=== PATIENT | female | born 1945 | race African-American/Black ===

== ENCOUNTER → 2016-08-09 | Outpatient (CLI) | payer MEDICARE ==
[2016-08-09 12:30] LABS: HEMOGLOBIN 10.1 g/dL (12.0-15.5); HGB HCT DIFFERENCE -1.7; MEAN CORPUSCULAR HEMOGLOBIN 26.1 pg (27.0-33.4); MEAN CORPUSCULAR HGB CONC 31.7 g/dL (32.0-36.0); MEAN CORPUSCULAR VOLUME 82 fl (80-97); RED BLOOD COUNT 3.88 10^6/uL (3.72-5.28); RED CELL DISTRIBUTION WIDTH 14.8 % (11.5-14.0)
[2016-08-09 12:50] LABS: ANION GAP 14 (5-19); BLOOD UREA NITROGEN 48 mg/dL (7-20); CALCIUM 9.1 mg/dL (8.4-10.2); CARBON DIOXIDE 26 mmol/L (22-30); CHLORIDE 103 mmol/L (98-107); CREATININE RESULT 1.78 mg/dL (0.52-1.25); GLUCOSE 92 mg/dL (75-110); IRON 23 ug/dL (37-170); POTASSIUM 3.5 mmol/L (3.6-5.0); SODIUM 142.8 mmol/L (137-145)
[2016-08-12 15:38] LABS: A/G RATIO 1.1 (0.7-1.7); ALBUMIN 2 3.4 g/dL (2.9-4.4); ALPHA-1-GLOBULIN 2 0.2 g/dL (0.0-0.4); GAMMA GLOBULIN 1.3 g/dL (0.4-1.8); PROTEIN TOTAL SERUM 6.4 g/dL (6.0-8.5)
== END ==
LOC: OD 10:51
PROVIDERS: ATTEND Internal Medicine Nephrology
DX: D64.9 Anemia, unspecified (principal); N18.3 Chronic kidney disease, stage 3 (moderate); I12.9 Hypertensive chronic kidney disease with stage 1 through stage 4 chronic kidney disease, or unspecified chronic kidney disease
CPT/HCPCS: 36415; 80048; 82728; 83540; 84165; 85027

== ENCOUNTER → 2016-10-07 | Outpatient (CLI) | payer MEDICARE ==
[2016-10-07 12:23] LABS: HEMATOCRIT 32.2 % (36.0-47.0); HEMOGLOBIN 10.8 g/dL (12.0-15.5); HGB HCT DIFFERENCE 0.2; MEAN CORPUSCULAR HGB CONC 33.5 g/dL (32.0-36.0); MEAN CORPUSCULAR VOLUME 81 fl (80-97); RED CELL DISTRIBUTION WIDTH 15.3 % (11.5-14.0); WHITE BLOOD COUNT 6.4 10^3/uL (4.0-10.5)
[2016-10-07 12:40] LABS: ANION GAP 9 (5-19); BLOOD UREA NITROGEN 32 mg/dL (7-20); CALCIUM 9.9 mg/dL (8.4-10.2); CARBON DIOXIDE 31 mmol/L (22-30); CHLORIDE 105 mmol/L (98-107); CREATININE RESULT 1.33 mg/dL (0.52-1.25); GLUCOSE 91 mg/dL (75-110); POTASSIUM 3.7 mmol/L (3.6-5.0); SODIUM 144.6 mmol/L (137-145)
[2016-10-08 16:39] LABS: A/G RATIO 1.2 (0.7-1.7); ALBUMIN 2 3.6 g/dL (2.9-4.4); ALPHA-1-GLOBULIN 2 0.2 g/dL (0.0-0.4); GAMMA GLOBULIN 1.4 g/dL (0.4-1.8); PROTEIN TOTAL SERUM 6.6 g/dL (6.0-8.5)
== END ==
LOC: OD 11:02
PROVIDERS: ATTEND Internal Medicine Nephrology
DX: I12.9 Hypertensive chronic kidney disease with stage 1 through stage 4 chronic kidney disease, or unspecified chronic kidney disease (principal); N18.3 Chronic kidney disease, stage 3 (moderate); D64.9 Anemia, unspecified
CPT/HCPCS: 36415; 80048; 82728; 83540; 83550; 84165; 85027

== ENCOUNTER → 2017-02-04 | Outpatient (CLI) | payer MEDICARE ==
[2017-02-04 11:55] LABS: APPEARANCE,URINE CLEAR; BILIRUBIN,URINE NEGATIVE (NEGATIVE); GLUCOSE, URINE NEGATIVE (NEGATIVE); KETONES,URINE NEGATIVE (NEGATIVE); LEUKOCYTE ESTERASE,URINE TRACE (NEGATIVE); NITRITE,URINE NEGATIVE (NEGATIVE); PROTEIN,URINE NEGATIVE (NEGATIVE); URINE SPECIFIC GRAVITY 1.012; UROBILINOGEN,URINE NEGATIVE mg/dL (<2.0)
[2017-02-04 12:00] LABS: HEMATOCRIT 32.9 % (36.0-47.0); HEMOGLOBIN 11.1 g/dL (12.0-15.5); HGB HCT DIFFERENCE 0.4; MEAN CORPUSCULAR HEMOGLOBIN 27.5 pg (27.0-33.4); MEAN CORPUSCULAR HGB CONC 33.7 g/dL (32.0-36.0); MEAN CORPUSCULAR VOLUME 82 fl (80-97); RED BLOOD COUNT 4.04 10^6/uL (3.72-5.28); RED CELL DISTRIBUTION WIDTH 14.7 % (11.5-14.0); WHITE BLOOD COUNT 4.9 10^3/uL (4.0-10.5)
[2017-02-04 12:16] LABS: ANION GAP 9 (5-19); BLOOD UREA NITROGEN 52 mg/dL (7-20); CALCIUM 9.5 mg/dL (8.4-10.2); CARBON DIOXIDE 26 mmol/L (22-30); CHLORIDE 105 mmol/L (98-107); CREATININE RESULT 1.82 mg/dL (0.52-1.25); GLUCOSE 96 mg/dL (75-110); SODIUM 139.9 mmol/L (137-145)
== END ==
LOC: OD 11:09
PROVIDERS: ATTEND Internal Medicine Nephrology
DX: I12.9 Hypertensive chronic kidney disease with stage 1 through stage 4 chronic kidney disease, or unspecified chronic kidney disease (principal); N18.3 Chronic kidney disease, stage 3 (moderate); D64.9 Anemia, unspecified; E87.5 Hyperkalemia
CPT/HCPCS: 36415; 80048; 81001; 82728; 83540; 83550; 85027

== ENCOUNTER 2017-03-12 01:32 | Emergency (ER) | payer MEDICARE ==
[2017-03-12 02:13] LABS: ABSOLUTE EOSINOPHILS # (AUTO) 0.1 10^3/uL (0.0-0.6); ABSOLUTE LYMPHOCYTES (AUTO) 2.6 10^3/uL (0.5-4.7); ABSOLUTE MONOCYTES (AUTO) 0.7 10^3/uL (0.1-1.4); ABSOLUTE NEUT (AUTO) 3.6 10^3/uL (1.7-8.2); BASOPHILS % (AUTO) 0.7 % (0-2); EOSINOPHILS % (AUTO) 1.7 % (0-6); HEMATOCRIT 35.6 % (36.0-47.0); HEMOGLOBIN 11.9 g/dL (12.0-15.5); HGB HCT DIFFERENCE 0.1; LYMPHOCYTES % (AUTO) 36.8 % (13-45); MEAN CORPUSCULAR HEMOGLOBIN 27.7 pg (27.0-33.4); MEAN CORPUSCULAR HGB CONC 33.4 g/dL (32.0-36.0); MEAN CORPUSCULAR VOLUME 83 fl (80-97); MONOCYTES % (AUTO) 9.6 % (3-13); RED CELL DISTRIBUTION WIDTH 14.8 % (11.5-14.0); SEGMENTED NEUTROPHILS % (AUTO) 51.2 % (42-78)
[2017-03-12 02:28] LABS: ALANINE AMINOTRANSFERASE 23 U/L (9-52); ALBUMIN 3.9 g/dL (3.5-5.0); ALKALINE PHOSPHATASE 66 U/L (38-126); ANION GAP 10 (5-19); ASPARTATE AMINO TRANSFERASE 31 U/L (14-36); BILIRUBIN,DIRECT 0.4 mg/dL (0.0-0.4); BILIRUBIN,TOTAL 0.5 mg/dL (0.2-1.3); BLOOD UREA NITROGEN 50 mg/dL (7-20); CALCIUM 9.7 mg/dL (8.4-10.2); CARBON DIOXIDE 28 mmol/L (22-30); CHLORIDE 107 mmol/L (98-107); CREATININE RESULT 1.88 mg/dL (0.52-1.25); GLUCOSE 135 mg/dL (75-110); POTASSIUM 3.7 mmol/L (3.6-5.0); SODIUM 145.1 mmol/L (137-145); TOTAL PROTEIN 7.2 g/dL (6.3-8.2)
[2017-03-12 02:47] LABS: APPEARANCE,URINE SLIGHTLY-CLOUDY; BILIRUBIN,URINE NEGATIVE (NEGATIVE); GLUCOSE, URINE NEGATIVE (NEGATIVE); KETONES,URINE NEGATIVE (NEGATIVE); LEUKOCYTE ESTERASE,URINE LARGE (NEGATIVE); NITRITE,URINE NEGATIVE (NEGATIVE); PROTEIN,URINE NEGATIVE (NEGATIVE); URINE SPECIFIC GRAVITY 1.009; UROBILINOGEN,URINE NEGATIVE mg/dL (<2.0)
--- NOTE | 2017-03-12 03:16 | ER Document Report ---
ED General - General TRAVEL OUTSIDE OF THE [place] IN LAST 30 DAYS: No <BIANKA JUNIOR - Last Filed: 03/12/17 19:20> <MAILE OCHOA - Last Filed: 03/17/17 11:36> - General Chief Complaint: Weakness Stated Complaint: WEAKNESS Time Seen by Provider: 03/12/17 01:57 Notes: This 71-year-old female presents emergency department complaining of feeling woozy and urinary frequency. Patient states that she was trying to sleep when she had sudden onset of feeling weak and dizzy. Patient states that she is better but feels intermittent nausea. Her daughter at the bedside states that she has been urinary more frequently. Patient states that before she went to bed she went to the bathroom at 6 times in an hour. Denies any pyuria, hematuria, flank pain, fever or chills. Past medical history significant for hypertension and chronic kidney disease stage III Past surgical history significant for cardiac cath in the and a stress test in 2005 that was normal. Primary care provider is Valery Ventura, tapper bit is Dr. Escalona, allocations clerk is Dr. Cohen (BIANKA JUNIOR) - Related Data Allergies/Adverse Reactions: No Known Allergies Allergy (Verified 08/19/14 22:15) Past Medical History - Social History Smoking Status: Never Smoker Family History: Reviewed & Not Pertinent Patient has suicidal ideation: No Patient has homicidal ideation: No - Past Medical History Cardiac Medical History: Reports: Hx Hypercholesterolemia, Hx Hypertension Denies: Hx Coronary Artery Disease, Hx Heart Attack Pulmonary Medical History: Denies: Hx Asthma, Hx Bronchitis, Hx COPD, Hx Pneumonia Neurological Medical History: Denies: Hx Cerebrovascular Accident, Hx Seizures Renal/ Medical History: Denies: Hx Peritoneal Dialysis GI Medical History: Reports: Hx Gastroesophageal Reflux Disease Musculoskeltal Medical History: Reports Hx Arthritis - Knees Past Surgical History: Reports: Hx Abdominal Surgery, Hx Bowel Surgery, Hx Hysterectomy, Hx Neurologic Surgery - brain tumor 2010, Hx Orthopedic Surgery - hand surgery, Hx Tonsillectomy - Immunizations Hx Diphtheria, Pertussis, Tetanus Vaccination: No Hx Pneumococcal Vaccination: 07/28/12 <BIANKA JUNIOR - Last Filed: 03/12/17 19:20> Review of Systems - Review of Systems Constitutional: No symptoms reported Cardiovascular: No symptoms reported Respiratory: No symptoms reported Genitourinary: Frequency. denies: Dysuria, Flank pain, Hematuria, Urgency, Retention Neurological/Psychological: See HPI <BIANKA JUNIOR - Last Filed: 03/12/17 19:20> Physical Exam <BIANKA JUNIOR - Last Filed: 03/12/17 19:20> <MAILE OCHOA - Last Filed: 03/17/17 11:36> - Vital signs Vitals: Temp Pulse Resp BP Pulse Ox 97.6 F 58 L 14 103/60 100 03/12/17 01:36 03/12/17 01:36 03/12/17 01:36 03/12/17 01:36 03/12/17 01:36 - Notes Notes: PHYSICAL EXAM GENERAL: Alert, interacts well. HEAD: Normocephalic, atraumatic. EYES: Pupils equal, round, and reactive to light. Extraocular movements intact. ENT: Oral mucosa moist, tongue midline. NECK: Full range of motion. Supple. Trachea midline. LUNGS: Clear to auscultation bilaterally, no wheezes, rales, or rhonchi. No respiratory distress. HEART: Regular rate and rhythm. No murmurs, gallops, or rubs. ABDOMEN: Soft, nondistended, nontender. No guarding, rebound, or rigidity.. Bowel sounds present in all 4 quadrants. EXTREMITIES: Moves all 4 extremities spontaneously. No edema, radial and dorsalis pedis pulses 2/4 bilaterally. No cyanosis. NEUROLOGICAL: Alert and oriented x4. Normal speech. PSYCH: Normal affect, normal mood. SKIN: Warm, dry, normal turgor. No rashes or lesions noted. (BIANKA JUNIOR) Course - Laboratory Result Diagrams: 03/12/17 02:02 03/12/17 02:02 - EKG Interpretation by [place] EKG shows normal: Sinus rhythm Rate: Normal Rhythm: NSR Heart block present: 1st Degree When compared to previous EKG there are: No significant change <BIANKA JUNIOR - Last Filed: 03/12/17 19:20> - Laboratory Result Diagrams: 03/12/17 02:02 03/12/17 02:02 <MAILE OCHOA - Last Filed: 03/17/17 11:36> - Re-evaluation Re-evalutation: 03/12/17 02:00 Patient is a 71-year-old female who is hemodynamically stable, no acute distress afebrile. Orthostatics are normal. Patient with vague complaints will do cardiac workup. 03/12/2017 03:30 CBC and CMP stable without any evidence of anemia, leukocytosis. No evidence of electrolyte abnormalities. Kidney function is stable per comparison to previous lab evaluations. Patient is making urine. Urinalysis does show evidence of urinary tract infection. Troponin at 0.021. Patient will be held for 4 hours for repeat to be drawn at 6 AM. Patient is hemodynamically stable, no acute distress afebrile. Denies any chest pain, shortness of breath, difficulty breathing, cough. Patient and family are agreeable with plan. 03/12/17 06:28 Repeat troponin was 0.017. Patient HDs and eager to go home. Family at the bedside, patient stable for discharge. Patient is very well in appearance, vitals within normal limits. Low clinical suspicion for ACS given clinical history, exam, EKG without ST elevations or depressions, and negative initial troponin. HEART score less than or equal to 3. PE also seems unlikely given clinical history, absence of tachycardia or dyspnea. Well's score of 0. At this time will discharge with return precautions and follow-up recommendations. Verbal discharge instructions given a the bedside and opportunity for questions given. Medication warnings reviewed. Patient is in agreement with this plan and has verbalized understanding of return precautions and the need for primary care follow-up in the next 24-72 hours. (BIANKA JUNIOR) - Vital Signs Vital signs: Temp Pulse Resp BP Pulse Ox 97.6 F 58 L 15 138/78 H 99 03/12/17 01:36 03/12/17 01:36 03/12/17 07:54 03/12/17 07:54 03/12/17 07:54 - Laboratory Laboratory results interpreted by me: 03/12/17 03/12/17 03/12/17 02:02 02:02 02:26 Hgb 11.9 L Hct 35.6 L RDW 14.8 H Sodium 145.1 H BUN 50 H Creatinine 1.88 H Est GFR ( Amer) 32 L Est GFR (Non-Af Amer) 26 L Glucose 135 H Ur Leukocyte Esterase LARGE H Discharge <BIANKA JUNIOR - Last Filed: 03/12/17 19:20> <MAILE OCHOA - Last Filed: 03/17/17 11:36> - Discharge Clinical Impression: UTI (urinary tract infection) Qualifiers: Urinary tract infection type: acute cystitis Condition: Good Disposition: HOME, SELF-CARE Instructions: Nitrofurantoin ([facility]), Urinary Tract Infection ([facility]) Prescriptions: Nitrofurantoin/Nitrofuran Mac [Macrobid 100 mg Capsule] 1 tab PO BID #20 capsule Referrals: VALERY GUAJARDO NP [Primary Care Provider] - Follow up as needed
[2017-03-12 08:08] VITALS: BP 138/78
--- NOTE | 2017-03-12 08:26 | EKG REPORT ---
SEVERITY:- ABNORMAL ECG - SINUS RHYTHM FIRST DEGREE AV BLOCK LVH WITH SECONDARY REPOLARIZATION ABNORMALITY PROBABLE INFERIOR INFARCT, OLD : Confirmed by: Sim Whitney MD 12-Mar-2017 08:25:20
== END 2017-03-12 08:08 | disposition home or self-care (01) ==
LOC: ER 01:32
DX: N39.0 Urinary tract infection, site not specified (principal); I12.9 Hypertensive chronic kidney disease with stage 1 through stage 4 chronic kidney disease, or unspecified chronic kidney disease; N18.3 Chronic kidney disease, stage 3 (moderate)
CPT/HCPCS: 36415; 80053; 81001; 84484; 85025; 93005; 93010; 99285

== ENCOUNTER → 2017-04-08 | Outpatient (CLI) | payer MEDICARE ==
--- NOTE | 2017-04-08 16:30 | RADIOLOGY REPORT (SQ) ---
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 TECHNIQUE: Supine radiographic image of the abdomen acquired. LIMITATIONS: None. FINDINGS: BOWEL GAS PATTERN: Normal bowel gas pattern. No dilated loops. Moderate stool in the asce nding and transverse colon. CALCIFICATIONS: No suspicious calcifications. Calcified pelvic and retroperitoneal phleboliths. SOFT TISSUES: No gross mass or suggestion of organomegaly. HARDWARE: Surgical clips in the mid epigastrium with bowel anastomotic sharonda BONES: Osteopenic. Degenerative disc changes at L4-5 and L5-S1 OTHER: No other significant finding. IMPRESSION: Moderate stool in the colon. Otherwise nonobstructive bowel gas pattern. TECHNICAL DOCUMENTATION: JOB ID: [id number] [employer]- All Rights Reserved
== END ==
LOC: RAD 11:51
PROVIDERS: ATTEND Physician Assistant Surgical
DX: K59.01 Slow transit constipation (principal); K57.30 Diverticulosis of large intestine without perforation or abscess without bleeding
CPT/HCPCS: 74000

== ENCOUNTER → 2017-06-27 | Outpatient (CLI) | payer MEDICARE ==
[2017-06-27 12:30] LABS: HEMATOCRIT 34.3 % (36.0-47.0); HEMOGLOBIN 11.6 g/dL (12.0-15.5); HGB HCT DIFFERENCE 0.5; MEAN CORPUSCULAR HEMOGLOBIN 27.2 pg (27.0-33.4); MEAN CORPUSCULAR HGB CONC 33.8 g/dL (32.0-36.0); MEAN CORPUSCULAR VOLUME 80 fl (80-97); RED BLOOD COUNT 4.27 10^6/uL (3.72-5.28); RED CELL DISTRIBUTION WIDTH 15.1 % (11.5-14.0); WHITE BLOOD COUNT 7.1 10^3/uL (4.0-10.5)
[2017-06-27 12:49] LABS: ANION GAP 14 (5-19); BLOOD UREA NITROGEN 26 mg/dL (7-20); CALCIUM 9.5 mg/dL (8.4-10.2); CARBON DIOXIDE 27 mmol/L (22-30); CHLORIDE 105 mmol/L (98-107); CREATININE RESULT 1.67 mg/dL (0.52-1.25); GLUCOSE 133 mg/dL (75-110); POTASSIUM 3.6 mmol/L (3.6-5.0); SODIUM 145.9 mmol/L (137-145)
== END ==
LOC: OD 11:33
PROVIDERS: ATTEND Internal Medicine Nephrology
DX: N18.3 Chronic kidney disease, stage 3 (moderate) (principal); D64.9 Anemia, unspecified; I12.9 Hypertensive chronic kidney disease with stage 1 through stage 4 chronic kidney disease, or unspecified chronic kidney disease; E87.5 Hyperkalemia
CPT/HCPCS: 36415; 80048; 85027

== ENCOUNTER → 2017-08-05 | Outpatient (CLI) | payer MEDICARE ==
[2017-08-05 12:09] LABS: HEMATOCRIT 33.3 % (36.0-47.0); MEAN CORPUSCULAR HEMOGLOBIN 26.4 pg (27.0-33.4); MEAN CORPUSCULAR VOLUME 80 fl (80-97); PLATELET COUNT 251 10^3/uL (150-450); RED BLOOD COUNT 4.15 10^6/uL (3.72-5.28); RED CELL DISTRIBUTION WIDTH 14.9 % (11.5-14.0); WHITE BLOOD COUNT 5.2 10^3/uL (4.0-10.5)
[2017-08-05 12:37] LABS: ANION GAP 9 (5-19); BLOOD UREA NITROGEN 32 mg/dL (7-20); CALCIUM 9.8 mg/dL (8.4-10.2); CARBON DIOXIDE 29 mmol/L (22-30); CHLORIDE 105 mmol/L (98-107); GLUCOSE 106 mg/dL (75-110); POTASSIUM 3.9 mmol/L (3.6-5.0); SODIUM 143.2 mmol/L (137-145)
== END ==
LOC: OD 10:30
PROVIDERS: ATTEND Internal Medicine Nephrology
DX: I12.9 Hypertensive chronic kidney disease with stage 1 through stage 4 chronic kidney disease, or unspecified chronic kidney disease (principal); N18.3 Chronic kidney disease, stage 3 (moderate); E87.5 Hyperkalemia; D64.9 Anemia, unspecified
CPT/HCPCS: 36415; 80048; 85027

== ENCOUNTER 2017-08-08 16:44 | Emergency (ER) | payer MEDICARE ==
[2017-08-08] MEDS ORDERED: HYDRALAZINE HCL INJ/PF 20 MG/1 ML SDV IV ONE (17:46)
--- NOTE | 2017-08-08 17:49 | ER Document Report ---
ED Medical Screen (RME) - General Chief Complaint: High Blood Pressure Stated Complaint: BLOOD PRESSURE ISSES Time Seen by Provider: 08/08/17 17:40 Notes: 71-year-old female past medical history stage IV kidney disease hypertension sent here by her appraiser auditor Dr. Escalona for elevated blood pressure of systolic 220s. She denies having any symptoms. She denies missing any doses of her numerous blood pressure medications. She denies any changes in the dosing of her blood pressure medications. She is not currently on dialysis. In [facility] systolic blood pressure 226. TRAVEL OUTSIDE OF THE [place] IN LAST 30 DAYS: No - Related Data Allergies/Adverse Reactions: No Known Allergies Allergy (Verified 08/08/17 16:44) Home Medications: Current Home Medications Amlodipine Besylate 10 mg PO DAILY 08/08/17 [History] Aspirin [Aspirin EC] 81 mg PO DAILY 08/08/17 [History] Atorvastatin Calcium 20 mg PO DAILY 08/08/17 [History] Past Medical History - Social History Chew tobacco use (# tins/day): No Frequency of alcohol use: None Drug Abuse: None - Past Medical History Cardiac Medical History: Reports: Hx Hypercholesterolemia, Hx Hypertension Denies: Hx Coronary Artery Disease, Hx Heart Attack Pulmonary Medical History: Denies: Hx Asthma, Hx Bronchitis, Hx COPD, Hx Pneumonia Neurological Medical History: Denies: Hx Cerebrovascular Accident, Hx Seizures Renal/ Medical History: Denies: Hx Peritoneal Dialysis GI Medical History: Reports: Hx Gastroesophageal Reflux Disease Musculoskeltal Medical History: Reports Hx Arthritis - Knees Past Surgical History: Reports: Hx Abdominal Surgery, Hx Bowel Surgery, Hx Hysterectomy, Hx Neurologic Surgery - brain tumor 2010, Hx Orthopedic Surgery - hand surgery, Hx Tonsillectomy - Immunizations Hx Diphtheria, Pertussis, Tetanus Vaccination: No Physical Exam - Vital signs Vitals: Temp Pulse Resp BP Pulse Ox 97.6 F 50 L 16 205/80 H 100 08/08/17 17:13 08/08/17 17:13 08/08/17 17:13 08/08/17 17:13 08/08/17 17:13 Course - Vital Signs Vital signs: Temp Pulse Resp BP Pulse Ox 97.6 F 50 L 16 205/80 H 100 08/08/17 17:13 08/08/17 17:13 08/08/17 17:13 08/08/17 17:13 08/08/17 17:13
[2017-08-08 18:28] LABS: ABSOLUTE BASOPHILS # (AUTO) 0.1 10^3/uL (0.0-0.2); ABSOLUTE EOSINOPHILS # (AUTO) 0.2 10^3/uL (0.0-0.6); ABSOLUTE LYMPHOCYTES (AUTO) 2.4 10^3/uL (0.5-4.7); ABSOLUTE MONOCYTES (AUTO) 0.6 10^3/uL (0.1-1.4); ABSOLUTE NEUT (AUTO) 3.1 10^3/uL (1.7-8.2); BASOPHILS % (AUTO) 0.9 % (0-2); HEMATOCRIT 34.7 % (36.0-47.0); HEMOGLOBIN 11.4 g/dL (12.0-15.5); MEAN CORPUSCULAR HEMOGLOBIN 26.4 pg (27.0-33.4); MEAN CORPUSCULAR HGB CONC 32.9 g/dL (32.0-36.0); MEAN CORPUSCULAR VOLUME 80 fl (80-97); MONOCYTES % (AUTO) 9.9 % (3-13); PLATELET COUNT 261 10^3/uL (150-450); RED BLOOD COUNT 4.32 10^6/uL (3.72-5.28); RED CELL DISTRIBUTION WIDTH 14.4 % (11.5-14.0); SEGMENTED NEUTROPHILS % (AUTO) 48.2 % (42-78); TOTAL CELLS COUNTED % (AUTO) 100 %; WHITE BLOOD COUNT 6.4 10^3/uL (4.0-10.5)
[2017-08-08 18:49] LABS: ANION GAP 9 (5-19); BLOOD UREA NITROGEN 33 mg/dL (7-20); CALCIUM 10.1 mg/dL (8.4-10.2); CARBON DIOXIDE 30 mmol/L (22-30); CHLORIDE 104 mmol/L (98-107); GLUCOSE 101 mg/dL (75-110); MAGNESIUM 2.3 mg/dL (1.6-2.3); PHOSPHORUS 4.5 mg/dL (2.5-4.5); POTASSIUM 3.4 mmol/L (3.6-5.0); SODIUM 142.6 mmol/L (137-145)
[2017-08-08] MEDS ORDERED: LABETALOL HCL INJ 20 MG/4 ML DISP.SYRIN IV ONE (21:08)
[2017-08-08] MEDS ORDERED: NITROGLYCERIN 2% OINTMENT 1 GM PACKET TP ONE (21:38)
--- NOTE | 2017-08-08 21:47 | ER Document Report ---
ED General - General Chief Complaint: High Blood Pressure Stated Complaint: BLOOD PRESSURE ISSES Time Seen by Provider: 08/08/17 17:40 Mode of Arrival: Ambulatory Information source: Patient Notes: 71-year-old female history of hypertension who is on 5 separate blood pressure medications presents with complaints of high blood pressure. She denies any other complaints otherwise. She denies chest pain shortness breath with the breathing. TRAVEL OUTSIDE OF THE [place] IN LAST 30 DAYS: No - HPI Onset: Just prior to arrival Onset/Duration: Sudden Quality of pain: No pain Severity: Mild Pain Level: Denies Associated symptoms: Other Exacerbated by: Denies Relieved by: Denies Similar symptoms previously: Yes Recently seen / treated by doctor: Yes - sent by Dr norwood - Related Data Allergies/Adverse Reactions: No Known Allergies Allergy (Verified 08/08/17 16:44) Home Medications: Current Home Medications Amlodipine Besylate 10 mg PO DAILY 08/08/17 [History] Aspirin [Aspirin EC] 81 mg PO DAILY 08/08/17 [History] Atorvastatin Calcium 20 mg PO DAILY 08/08/17 [History] Calcium/Magnesium/Zinc [Zzlfcsf-Ambwnwaat-Wpdl Tab] 1 each PO DAILY 08/08/17 [ History] Cholecalciferol (Vitamin D3) [Cholecalciferol] 200 units PO DAILY 08/08/17 [ History] Clonidine HCl 0.2 mg PO TID 08/08/17 [History] Ferrous Sulfate [Ferosul] 325 mg PO DAILY 08/08/17 [History] Furosemide 20 mg PO DAILY 08/08/17 [History] Glimepiride 1 mg PO DAILY 08/08/17 [History] Isosorbide Mononitrate [Isosorbide Mononitrate ER] 30 mg PO DAILY 08/08/17 [ History] Lactobacillus Rhamnosus GG [Culturelle] 1 each PO DAILY 08/08/17 [History] Lactulose 10 gm PO BID 08/08/17 [History] Latanoprost 2.5 ml OP DAILY 08/08/17 [History] Levothyroxine Sodium 50 mcg PO DAILY 08/08/17 [History] Losartan/Hydrochlorothiazide [Hyzaar 100-12.5 Tablet] 1 each PO DAILY 08/08/17 [ History] Metoprolol Succinate 25 mg PO DAILY 08/08/17 [History] Past Medical History - Social History Smoking Status: Never Smoker Cigarette use (# per day): No Chew tobacco use (# tins/day): No Smoking Education Provided: No Frequency of alcohol use: None Drug Abuse: None Family History: Reviewed & Not Pertinent Patient has suicidal ideation: No Patient has homicidal ideation: No - Past Medical History Cardiac Medical History: Reports: Hx Hypercholesterolemia, Hx Hypertension Denies: Hx Coronary Artery Disease, Hx Heart Attack Pulmonary Medical History: Denies: Hx Asthma, Hx Bronchitis, Hx COPD, Hx Pneumonia Neurological Medical History: Denies: Hx Cerebrovascular Accident, Hx Seizures Renal/ Medical History: Denies: Hx Peritoneal Dialysis GI Medical History: Reports: Hx Gastroesophageal Reflux Disease Musculoskeltal Medical History: Reports Hx Arthritis - Knees Past Surgical History: Reports: Hx Abdominal Surgery, Hx Bowel Surgery, Hx Hysterectomy, Hx Neurologic Surgery - brain tumor 2010, Hx Orthopedic Surgery - hand surgery, Hx Tonsillectomy - Immunizations Hx Diphtheria, Pertussis, Tetanus Vaccination: No Hx Pneumococcal Vaccination: 07/28/12 Review of Systems - Review of Systems Notes: REVIEW OF SYSTEMS: CONSTITUTIONAL : Denies fever, chills, or sweats. Denies recent illness. EENT: Denies eye, ear, throat, or mouth pain or symptoms. Denies nasal or sinus congestion or discharge. Denies throat, tongue, or mouth swelling or difficulty swallowing. CARDIOVASCULAR: Denies chest pain. Denies palpitations or racing or irregular heart beat. Denies ankle edema. RESPIRATORY: Denies cough, cold, or chest congestion. Denies shortness of breath, difficulty breathing, or wheezing. GASTROINTESTINAL: Denies abdominal pain or distention. Denies nausea, vomiting , or diarrhea. Denies blood in vomitus, stools, or per rectum. Denies black, tarry stools. Denies constipation. GENITOURINARY: Denies difficulty urinating, painful urination, burning, frequency, blood in urine, or discharge. FEMALE GENITOURINARY: Denies vaginal bleeding, heavy or abnormal periods, irregular periods. Denies vaginal discharge or odor. MUSCULOSKELETAL: Denies back or neck pain or stiffness. Denies joint pain or swelling. SKIN: Denies rash, lesions or sores. HEMATOLOGIC : Denies easy bruising or bleeding. LYMPHATIC: Denies swollen, enlarged glands. NEUROLOGICAL: Denies confusion or altered mental status. Denies passing out or loss of consciousness. Denies dizziness or lightheadedness. Denies headache. Denies weakness or paralysis or loss of use of either side. Denies problems with gait or speech. Denies sensory loss, numbness, or tingling. Denies seizures. PSYCHIATRIC: Denies anxiety or stress. Denies depression, suicidal ideation, or homicidal ideation. ALL OTHER SYSTEMS REVIEWED AND NEGATIVE. PHYSICAL EXAMINATION: GENERAL: Well-appearing, well-nourished and in no acute distress. hypertensive HEAD: Atraumatic, normocephalic. EYES: Pupils equal round and reactive to light, extraocular movements intact, conjunctiva are normal. ENT: Nares patent, oropharynx clear without exudates. Moist mucous membranes. NECK: Normal range of motion, supple without lymphadenopathy LUNGS: Breath sounds clear to auscultation bilaterally and equal. No wheezes rales or rhonchi. HEART: Regular rate and rhythm without murmurs ABDOMEN: Soft, nontender, nondistended abdomen. No guarding, no rebound. No masses appreciated. Female : deferred Musculoskeletal: Normal range of motion, no pitting or edema. No cyanosis. NEUROLOGICAL: Cranial nerves grossly intact. Normal speech, normal gait. Normal sensory, motor exams PSYCH: Normal mood, normal affect. SKIN: Warm, Dry, normal turgor, no rashes or lesions noted. Dictation was performed using [employer] voice recognition software Physical Exam - Vital signs Vitals: Temp Pulse Resp BP Pulse Ox 97.6 F 50 L 16 205/80 H 100 08/08/17 17:13 08/08/17 17:13 08/08/17 17:13 08/08/17 17:13 08/08/17 17:13 Course - Re-evaluation Re-evalutation: 08/08/17 22:19 Pt noted to be stage IV kidney disease. She is asymptomatic, given clonidine by dr norwood before sending her in, given hydralazine here in [facility], pt still hypertensive, given metoprolol iv pt t obe admitted to the hospitalist service for hypertensive urgency - Vital Signs Vital signs: Temp Pulse Resp BP Pulse Ox 97.6 F 50 L 16 226/87 H 100 08/08/17 17:13 08/08/17 17:13 08/08/17 17:13 08/08/17 17:42 08/08/17 17:13 - Laboratory Result Diagrams: 08/08/17 18:10 08/08/17 18:10 Laboratory results interpreted by me: 08/08/17 08/08/17 18:10 18:10 Hgb 11.4 L Hct 34.7 L MCH 26.4 L RDW 14.4 H Potassium 3.4 L BUN 33 H Creatinine 1.55 H Est GFR ( Amer) 40 L Est GFR (Non-Af Amer) 33 L - Diagnostic Test Radiology reviewed: Image reviewed, Reports reviewed - EKG Interpretation by Me EKG shows normal: Sinus rhythm, [place], Intervals, QRS Complexes Critical Care Note - Critical Care Note Total time excluding time spent on procedures (mins): 35 Comments: 35 minutes of critical care time spent in direct contact evaluating and reevaluating the patient, treating symptoms, reviewing labs and studies and speaking with family and consultants excluding any procedures Discharge - Discharge Clinical Impression: Hypertensive urgency, malignant Condition: Stable Disposition: ADMITTED INPATIENT Admitting Provider: Hospitalist Unit Admitted: Telemetry
[2017-08-08] MEDS ORDERED: POTASSIUM CHLORIDE 10 MEQ TABLET.SA PO ONE (21:54)
[2017-08-08] MEDS ORDERED: LORAZEPAM 0.5 MG TABLET PO ONE (21:54)
--- NOTE | 2017-08-08 22:18 | RADIOLOGY REPORT (SQ) ---
EXAM DESCRIPTION: CHEST SINGLE VIEW COMPLETED DATE/TIME: 08/08/2017 10:11 pm REASON FOR STUDY: hypertensive emergency COMPARISON: 10/31/2015 EXAM PARAMETERS: NUMBER OF VIEWS: One view. TECHNIQUE: Single frontal radiographic view of the chest acquired. RADIATION DOSE: NA LIMITATIONS: None. FINDINGS: LUNGS AND PLEURA: No opacities, masses or pneumothorax. No pleural effusion. MEDIASTINUM AND HILAR STRUCTURES: No masses. Contour normal. HEART AND VASCULAR STRUCTURES: Heart normal in size. Normal vasculature. BONES: No acute findings. HARDWARE: None in the chest. OTHER: No other significant finding. IMPRESSION: NO ACUTE RADIOGRAPHIC FINDING IN THE CHEST. TECHNICAL DOCUMENTATION: JOB ID: [id number] [employer]- All Rights Reserved
[2017-08-08] MEDS ORDERED: CLONIDINE HCL 0.2 MG TABLET PO ONE (23:22)
--- NOTE | 2017-08-09 02:47 | PDOC CONSULTATION ---
Consultation Consult Date: 08/08/17 Attending physician:: KOLBY FLORES Consult reason:: Hypertension History of Present Illness Admission Date/PCP: 08/08/17 22:13 ANUSHKA GUAJARDO NP History of Present Illness: FARIHA ROSS is a 71 year old female with past medical history of chronic kidney disease, hypertension, anemia, Beatties mellitus, hypothyroidism hyperlipidemia who presents to the emergency department from her cosmetic dentist office for hypertensive urgency. Patient reports that she did not take her clonidine this afternoon and was given her clonidine in her doctor's office. She was still hypertensive with a systolic in the 200s and received labetalol and hydralazine in the emergency department. Patient was subsequently given 0.5 mg of p.o. Ativan with improvement of her symptomatology. Patient reports at this time that she does not wish to be admitted. She denies any chest pain, lower extremity edema, shortness of breath, nausea, vomiting, fever, chills. At this time I discussed this case with the emergency department physician who is in agreement that patient may be discharged home to follow-up with her primary care physician and her cosmetic dentist. Past Medical History Cardiac Medical History: Reports: Hyperlipidema, Hypertension Denies: Coronary Artery Disease, Myocardial Infarction Pulmonary Medical History: Denies: Asthma, Bronchitis, Chronic Obstructive Pulmonary Disease (COPD), Pneumonia Neurological Medical History: Denies: Seizures Endocrine Medical History: Reports: Diabetes Mellitus Type 2 GI Medical History: Reports: Gastroesophageal Reflux Disease Musculoskeltal Medical History: Reports: Arthritis - Knees Hematology: Denies: Anemia Past Surgical History Past Surgical History: Reports: Hysterectomy, Orthopedic Surgery - hand surgery , Tonsillectomy Social History Smoking Status: Never Smoker Frequency of Alcohol Use: None Hx Recreational Drug Use: No Drugs: None Hx Prescription Drug Abuse: No - Advance Directive Resuscitation Status: Full Code Family History Family History: Reviewed & Not Pertinent Parental Family History Reviewed: No Children Family History Reviewed: No Sibling(s) Family History Reviewed.: No Medication/Allergy Home Medications: Amlodipine Besylate 10 mg PO DAILY 08/08/17 Aspirin [Aspirin EC] 81 mg PO DAILY 08/08/17 Atorvastatin Calcium 20 mg PO DAILY 08/08/17 Calcium/Magnesium/Zinc [Jkohdpp-Homzntmpa-Efar Tab] 1 each PO DAILY 08/08/17 Cholecalciferol (Vitamin D3) [Cholecalciferol] 200 units PO DAILY 08/08/17 Clonidine HCl 0.2 mg PO TID 08/08/17 Ferrous Sulfate [Ferosul] 325 mg PO DAILY 08/08/17 Furosemide 20 mg PO DAILY 08/08/17 Glimepiride 1 mg PO DAILY 08/08/17 Isosorbide Mononitrate [Isosorbide Mononitrate ER] 30 mg PO DAILY 08/08/17 Lactobacillus Rhamnosus GG [Culturelle] 1 each PO DAILY 08/08/17 Lactulose 10 gm PO BID 08/08/17 Latanoprost 2.5 ml OP DAILY 08/08/17 Levothyroxine Sodium 50 mcg PO DAILY 08/08/17 Losartan/Hydrochlorothiazide [Hyzaar 100-12.5 Tablet] 1 each PO DAILY 08/08/17 Metoprolol Succinate 25 mg PO DAILY 08/08/17 Allergies/Adverse Reactions: No Known Allergies Allergy (Verified 08/08/17 16:44) Review of Systems Constitutional: ABSENT: chills, fever(s), headache(s), weight gain, weight loss Eyes: ABSENT: visual disturbances Ears: ABSENT: hearing changes Cardiovascular: ABSENT: chest pain, dyspnea on exertion, edema, orthropnea, palpitations Respiratory: ABSENT: cough, hemoptysis Gastrointestinal: ABSENT: abdominal pain, constipation, diarrhea, hematemesis, hematochezia, nausea, vomiting Genitourinary: ABSENT: dysuria, hematuria Musculoskeletal: ABSENT: joint swelling Integumentary: ABSENT: rash, wounds Neurological: ABSENT: abnormal gait, abnormal speech, confusion, dizziness, focal weakness, syncope Psychiatric: ABSENT: anxiety, depression, homidical ideation, suicidal ideation Endocrine: ABSENT: cold intolerance, heat intolerance, polydipsia, polyuria Hematologic/Lymphatic: ABSENT: easy bleeding, easy bruising Physical Exam Vital Signs: Temp Pulse Resp BP Pulse Ox 97.6 F 50 L 16 226/87 H 100 08/08/17 17:13 08/08/17 17:13 08/08/17 17:13 08/08/17 17:42 08/08/17 17:13 General appearance: PRESENT: no acute distress, obese, well-developed, well- nourished Head exam: PRESENT: atraumatic, normocephalic Eye exam: PRESENT: conjunctiva pink, EOMI, PERRLA. ABSENT: scleral icterus Ear exam: PRESENT: normal external ear exam Mouth exam: PRESENT: moist, tongue midline Neck exam: ABSENT: JVD, tracheal deviation Respiratory exam: PRESENT: clear to auscultation raffi, unlabored. ABSENT: rales , rhonchi, wheezes Cardiovascular exam: PRESENT: RRR, +S1, +S2, systolic murmur. ABSENT: diastolic murmur, rubs Pulses: PRESENT: normal dorsalis pedis pul Vascular exam: PRESENT: normal capillary refill GI/Abdominal exam: PRESENT: normal bowel sounds, soft. ABSENT: distended, firm , guarding, mass, organolmegaly, rebound, rigid, tenderness Rectal exam: PRESENT: deferred Extremities exam: ABSENT: calf tenderness, clubbing, pedal edema Neurological exam: PRESENT: alert, awake, oriented to person, oriented to place , oriented to time, oriented to situation, CN II-XII grossly intact. ABSENT: motor sensory deficit Psychiatric exam: PRESENT: appropriate affect, normal mood. ABSENT: homicidal ideation, suicidal ideation Skin exam: PRESENT: dry, intact, warm. ABSENT: cyanosis, rash Results Impressions: Chest X-Ray 08/08/17 00:00 IMPRESSION: NO ACUTE RADIOGRAPHIC FINDING IN THE CHEST. Assessment & Plan - Diagnosis (1) Hypertensive urgency, malignant Is this a current diagnosis for this admission?: Yes Plan: Patient had hypertensive urgency without any endorgan damage. Patient has a history of CKD stage IV. At this time, patient does not appear volume overloaded and her blood pressure did respond appropriately to the reinitiation of her normal medication. She is encouraged to be compliant with her medications and follow-up with her primary care physician and her cosmetic dentist. She is to return to the emergency department for any chest pain, headache, shortness of breath, lower extremity swelling or any other concerning symptoms such as numbness tingling or difficulty with speech. Patient is in agreement with this plan. - Time Time Spent: 30 to 50 Minutes Medications reviewed and adjusted accordingly: Yes Anticipated discharge: Home
[2017-08-09 04:08] VITALS: BP 168/81
--- NOTE | 2017-08-09 09:38 | EKG REPORT ---
SEVERITY:- ABNORMAL ECG - SINUS RHYTHM FIRST DEGREE AV BLOCK LVH WITH SECONDARY REPOLARIZATION ABNORMALITY INFERIOR INFARCT, OLD : Confirmed by: Sim Whitney MD 09-Aug-2017 09:37:10
== END 2017-08-09 03:55 | disposition admitted as inpatient to this hospital (09) ==
LOC: ER 16:44 → UNDOADMIN 22:13 → EH 22:13 → UNDODISIN 08-09 03:55
DX: I16.0 Hypertensive urgency (principal); Z79.899 Other long term (current) drug therapy
CPT/HCPCS: 93005; 99285; 96374; 96375; 36415; 83735; 84100; 85025; 80048; 71045; 93010; A9270 ×4; J0360; J3490

== ENCOUNTER → 2017-09-11 | Outpatient (CLI) | payer MEDICARE ==
--- NOTE | 2017-09-11 11:55 | WOMENS IMAGING REPORT ---
EXAM DESCRIPTION: 3D SCREENING MAMMO BILAT COMPLETED DATE/TIME: 09/11/2017 11:14 am REASON FOR STUDY: ROUTINE SCREENING; Z12.31 Z12.31 ENCNTR SCREEN MAMMOGRAM FOR MALIGNANT NEOPLASM O F CHUY COMPARISON: 2015 TECHNIQUE: Standard craniocaudal and mediolateral oblique views of each breast recorded using digita l acquisition and breast tomosynthesis. LIMITATIONS: None. FINDINGS: No masses, calcifications or architectural distortion. No areas of suspicion. Read with the assistance of CAD. .[facility] - R2 Cenova Version 1.3 .[facility] Imaging - R2 Cenova Version 1.3 .[facility] Imaging - R2 Cenova Version 2.4 .[facility] - R2 Cenova Version 2.4 .[facility] - R2 Bottom Worker Version 9.2 IMPRESSION: NORMAL MAMMOGRAM. BIRADS 1. BREAST DENSITY: a. The breasts are almost entirely fatty. BIRAD: 1 NEGATIVE RECOMMENDATION: ROUTINE SCREENING COMMENT: The patient has been notified of the results by letter per SA requirements. Additional no tification policies are in place for contacting patient with suspicious or incomplete findings. Quality ID #[id number]: The [employer] recommends an annual screening mammogram for women aged 40 years or over. This facility utilizes a reminder system to ensure that all patients receive reminder letters, and/or direct phone calls for appointments. This includes reminders for routine scr eening mammograms, diagnostic mammograms, or other Breast Imaging Interventions when appropriate. Th is patient will be placed in the appropriate reminder system. The [employer] (ACR) has developed recommendations for screening MRI of the breast s in certain patient populations, to be used in conjunction with mammography. Breast MRI surveillanc e may be appropriate for women with more than 20% lifetime risk of developing breast cancer as deter mined by genetic testing, significant family history of the disease, or history of mantle radiation f or Hodgkins Disease. ACR Practice Guidelines 2008. DBT Technology DBT is a type of tomographic mammography. With conventional mammography, overlapping breast tissue ma y make lesions difficult to detect, even with good compression. DBT uses an x-ray tube that rotates a round the breast, taking images at different angles. These images are then combined to create thin sl ices of the breast that the radiologist can view as a 3D reconstruction. The Stam[employer] unit can perform full-field digital mammograms (2D imaging); or DBT (3D imaging); or both, in a combination mode that quickly performs both the mammogram and the tomosynthesis scan while the breast is still compressed. PQRS 6045F: Fluoroscopic imaging is not utilized for breast tomosynthesis. TECHNICAL DOCUMENTATION: FINDING NUMBER: (1) ASSESSMENT: (1) JOB ID: [id number] [employer]- All Rights Reserved
== END ==
LOC: WI 09:20
PROVIDERS: ATTEND Nurse Practitioner
DX: Z12.31 Encounter for screening mammogram for malignant neoplasm of breast (principal)
CPT/HCPCS: 77063; 77067

== ENCOUNTER → 2018-02-27 | Outpatient (CLI) | payer MEDICARE ==
[2018-02-27 13:06] LABS: HEMATOCRIT 31.6 % (36.0-47.0); HEMOGLOBIN 10.6 g/dL (12.0-15.5); MEAN CORPUSCULAR HEMOGLOBIN 26.9 pg (27.0-33.4); MEAN CORPUSCULAR HGB CONC 33.4 g/dL (32.0-36.0); MEAN CORPUSCULAR VOLUME 81 fl (80-97); PLATELET COUNT 278 10^3/uL (150-450); RED BLOOD COUNT 3.93 10^6/uL (3.72-5.28); RED CELL DISTRIBUTION WIDTH 14.5 % (11.5-14.0); WHITE BLOOD COUNT 6.5 10^3/uL (4.0-10.5)
[2018-02-27 13:10] LABS: APPEARANCE,URINE CLEAR; BILIRUBIN,URINE NEGATIVE (NEGATIVE); COLOR,URINE YELLOW; GLUCOSE, URINE NEGATIVE (NEGATIVE); KETONES,URINE NEGATIVE (NEGATIVE); LEUKOCYTE ESTERASE,URINE MODERATE (NEGATIVE); NITRITE,URINE NEGATIVE (NEGATIVE); PROTEIN,URINE NEGATIVE (NEGATIVE); URINE SPECIFIC GRAVITY 1.011; UROBILINOGEN,URINE NEGATIVE mg/dL (<2.0)
[2018-02-27 13:40] LABS: ANION GAP 10 (5-19); BLOOD UREA NITROGEN 27 mg/dL (7-20); CALCIUM 9.1 mg/dL (8.4-10.2); CARBON DIOXIDE 28 mmol/L (22-30); CHLORIDE 101 mmol/L (98-107); GLUCOSE 103 mg/dL (75-110); POTASSIUM 3.5 mmol/L (3.6-5.0); SODIUM 138.9 mmol/L (137-145)
== END ==
LOC: OD 11:50
PROVIDERS: ATTEND Internal Medicine Nephrology
DX: I12.9 Hypertensive chronic kidney disease with stage 1 through stage 4 chronic kidney disease, or unspecified chronic kidney disease (principal); N18.3 Chronic kidney disease, stage 3 (moderate); E87.5 Hyperkalemia; D64.9 Anemia, unspecified
CPT/HCPCS: 36415; 80048; 81001; 85027

== ENCOUNTER → 2018-03-06 | Outpatient (CLI) | payer MEDICARE | LOC: OD 12:09 | PROVIDERS: ATTEND Internal Medicine Nephrology | DX: E03.9 Hypothyroidism, unspecified (principal); D64.9 Anemia, unspecified | CPT/HCPCS: 36415; 84443 ==

== ENCOUNTER 2018-03-22 19:07 | Emergency (ER) | payer MEDICARE ==
[2018-03-22] MEDS ORDERED: NORMAL SALINE 1000 ML 1,000 ML IV ONE (19:34)
[2018-03-22] MEDS ORDERED: METOCLOPRAMIDE HCL INJ/PF 10 MG/2 ML SDV IV ONE (19:35)
--- NOTE | 2018-03-22 19:37 | ER Document Report ---
ED Medical Screen (RME) - General Chief Complaint: Constipation Stated Complaint: NO BOWEL MOVEMENT Time Seen by Provider: 03/22/18 19:29 Mode of Arrival: Wheelchair Information source: Patient TRAVEL OUTSIDE OF THE [place] IN LAST 30 DAYS: No - HPI Patient complains to provider of: Constipation Onset: Other - 72-year-old female with a history of chronic constipation treated in the past with lactulose who presents for evaluation of terrible constipation in the setting of having skipped 2 days of her lactulose while her family was out of town. While attempting to start back taking her normal medicines she has had now intense abdominal pain with associated vomiting. She notes that she tried 2 enemas at home today also because of her hemorrhoids is not having rectal bleeding. - Related Data Allergies/Adverse Reactions: No Known Allergies Allergy (Verified 03/22/18 19:25) Past Medical History - Social History Chew tobacco use (# tins/day): No Frequency of alcohol use: None Drug Abuse: None - Past Medical History Cardiac Medical History: Reports: Hx Hypercholesterolemia, Hx Hypertension Denies: Hx Coronary Artery Disease, Hx Heart Attack Pulmonary Medical History: Denies: Hx Asthma, Hx Bronchitis, Hx COPD, Hx Pneumonia Neurological Medical History: Denies: Hx Cerebrovascular Accident, Hx Seizures Endocrine Medical History: Reports: Hx Diabetes Mellitus Type 2 Renal/ Medical History: Denies: Hx Peritoneal Dialysis GI Medical History: Reports: Hx Gastroesophageal Reflux Disease Musculoskeltal Medical History: Reports Hx Arthritis - Knees Past Surgical History: Reports: Hx Abdominal Surgery - partial bowels removed, Hx Bowel Surgery, Hx Hysterectomy, Hx Neurologic Surgery - brain tumor removed, Hx Orthopedic Surgery - hand surgery, Hx Tonsillectomy - Immunizations Hx Diphtheria, Pertussis, Tetanus Vaccination: No Physical Exam - Vital signs Vitals: Temp Pulse Resp BP Pulse Ox 98.6 F 81 16 185/97 H 100 03/22/18 19:14 03/22/18 19:14 03/22/18 19:14 03/22/18 19:14 03/22/18 19:14 Course - Re-evaluation Re-evalutation: 03/22/18 19:36 72-year-old female with a constipated history, has been utilizing lactulose in the past to help with her constipation, though she skipped 2 days accidentally. She is trying to use 2 enemas to help with her symptoms. [place] abdominal tenderness worse than left lower quadrant she is also actively vomiting on evaluation. She has had multiple abdominal surgeries in the past, have some concern for an obstructive process as such we will plan for the patient undergo abdominal x-ray , will plan for the patient undergo labs including lactate as well and potential CT imaging. We will administer antiemetic. Will administer saline. Patient has deferred analgesia at this time will defer disposition upcoming physician. - Vital Signs Vital signs: Temp Pulse Resp BP Pulse Ox 98.6 F 81 16 185/97 H 100 03/22/18 19:14 03/22/18 19:14 03/22/18 19:14 03/22/18 19:14 03/22/18 19:14 Doctor's Discharge - Discharge Referrals: Dara KITCHEN MD [Primary Care Provider] - Follow up as needed
[2018-03-22] MEDS ORDERED: LACTULOSE SYRUP 20 GM/30 ML UDCUP PO ONE (20:01)
[2018-03-22 20:47] LABS: ABSOLUTE BASOPHILS # (AUTO) 0.1 10^3/uL (0.0-0.2); ABSOLUTE EOSINOPHILS # (AUTO) 0.1 10^3/uL (0.0-0.6); ABSOLUTE LYMPHOCYTES (AUTO) 1.9 10^3/uL (0.5-4.7); ABSOLUTE MONOCYTES (AUTO) 0.6 10^3/uL (0.1-1.4); ABSOLUTE NEUT (AUTO) 6.6 10^3/uL (1.7-8.2); BASOPHILS % (AUTO) 0.6 % (0-2); EOSINOPHILS % (AUTO) 1.1 % (0-6); HEMATOCRIT 36.7 % (36.0-47.0); HEMOGLOBIN 12.2 g/dL (12.0-15.5); LYMPHOCYTES % (AUTO) 20.2 % (13-45); MEAN CORPUSCULAR HEMOGLOBIN 26.9 pg (27.0-33.4); MEAN CORPUSCULAR HGB CONC 33.3 g/dL (32.0-36.0); MEAN CORPUSCULAR VOLUME 81 fl (80-97); MONOCYTES % (AUTO) 6.8 % (3-13); PLATELET COUNT 270 10^3/uL (150-450); RED BLOOD COUNT 4.55 10^6/uL (3.72-5.28); RED CELL DISTRIBUTION WIDTH 14.7 % (11.5-14.0); SEGMENTED NEUTROPHILS % (AUTO) 71.3 % (42-78); TOTAL CELLS COUNTED % (AUTO) 100 %; WHITE BLOOD COUNT 9.2 10^3/uL (4.0-10.5)
[2018-03-22 20:50] LABS: APPEARANCE,URINE CLEAR; BILIRUBIN,URINE NEGATIVE (NEGATIVE); COLOR,URINE STRAW; GLUCOSE, URINE NEGATIVE (NEGATIVE); KETONES,URINE NEGATIVE (NEGATIVE); LEUKOCYTE ESTERASE,URINE TRACE (NEGATIVE); NITRITE,URINE NEGATIVE (NEGATIVE); PROTEIN,URINE NEGATIVE (NEGATIVE); URINE SPECIFIC GRAVITY 1.012; UROBILINOGEN,URINE NEGATIVE mg/dL (<2.0)
--- NOTE | 2018-03-22 20:58 | ER Document Report ---
ED General - General Chief Complaint: Constipation Stated Complaint: NO BOWEL MOVEMENT Time Seen by Provider: 03/22/18 19:29 Mode of Arrival: Wheelchair Notes: Patient is a 72-year old female with a past medical history of prior bowel obstructions requiring a partial bowel resection in the past, chronic constipation, hypertension, who presents with 2 days without having a bowel movement, 24 hours of nausea, vomiting and generalized abdominal pain. She describes abdominal pain as a cramping, aching, diffuse pain. Nothing improves or worsens the pain. She has had several episodes of brown vomitus today and has had difficulty tolerating oral intake. She states that she was traveling, did not take her lactulose for the past 48 hours which she normally takes to prevent severe constipation. She has not seen her general doctor regarding today's concerns. She denies any fever or constitutional symptoms. No dysuria. TRAVEL OUTSIDE OF THE [place] IN LAST 30 DAYS: No - Related Data Allergies/Adverse Reactions: No Known Allergies Allergy (Verified 03/22/18 19:25) Past Medical History - General Information source: Patient - Social History Smoking Status: Never Smoker Chew tobacco use (# tins/day): No Frequency of alcohol use: None Drug Abuse: None Lives with: Family Family History: Reviewed & Not Pertinent Patient has suicidal ideation: No Patient has homicidal ideation: No - Past Medical History Cardiac Medical History: Reports: Hx Hypercholesterolemia, Hx Hypertension Denies: Hx Coronary Artery Disease, Hx Heart Attack Pulmonary Medical History: Denies: Hx Asthma, Hx Bronchitis, Hx COPD, Hx Pneumonia Neurological Medical History: Denies: Hx Cerebrovascular Accident, Hx Seizures Endocrine Medical History: Reports: Hx Diabetes Mellitus Type 2 Renal/ Medical History: Denies: Hx Peritoneal Dialysis GI Medical History: Reports: Hx Gastroesophageal Reflux Disease Musculoskeletal Medical History: Reports Hx Arthritis - Knees Past Surgical History: Reports: Hx Abdominal Surgery - partial bowels removed, Hx Bowel Surgery, Hx Hysterectomy, Hx Neurologic Surgery - brain tumor removed, Hx Orthopedic Surgery - hand surgery, Hx Tonsillectomy - Immunizations Hx Diphtheria, Pertussis, Tetanus Vaccination: No Hx Pneumococcal Vaccination: 07/28/12 Review of Systems - Review of Systems Notes: Constitutional: Negative for fever. HENT: Negative for sore throat. Eyes: Negative for visual changes. Cardiovascular: Negative for chest pain. Respiratory: Negative for shortness of breath. Gastrointestinal: Positive for abdominal pain and vomiting Genitourinary: Negative for dysuria. Musculoskeletal: Negative for back pain. Skin: Negative for rash. Neurological: Negative for headaches, weakness or numbness. 10 point ROS negative except as marked above and in HPI. Physical Exam - Vital signs Vitals: Temp Pulse Resp BP Pulse Ox 98.6 F 81 16 185/97 H 100 03/22/18 19:14 03/22/18 19:14 03/22/18 19:14 03/22/18 19:14 03/22/18 19:14 Interpretation: Hypertensive Notes: PHYSICAL EXAMINATION: GENERAL: Well-appearing, well-nourished and in no acute distress. HEAD: Atraumatic, normocephalic. EYES: Pupils equal round and reactive to light, extraocular movements intact, sclera anicteric, conjunctiva are normal. ENT: nares patent, oropharynx clear without exudates. Mildly dry mucous membranes. NECK: Normal range of motion, supple without lymphadenopathy LUNGS: Breath sounds clear to auscultation bilaterally and equal. No wheezes rales or rhonchi. HEART: Regular rate and rhythm without murmurs ABDOMEN: Soft, nontender, normoactive bowel sounds. No guarding, no rebound. No masses appreciated. EXTREMITIES: Normal range of motion, no pitting or edema. No cyanosis. NEUROLOGICAL: No focal neurological deficits. Moves all extremities spontaneously and on command. PSYCH: Normal mood, normal affect. SKIN: Warm, Dry, normal turgor, no rashes or lesions noted. Course - Re-evaluation Re-evalutation: 03/22/18 20:57 Patient presents with generalized abdominal pain, decreased bowel movement frequency and vomiting brown for the past 24 hours. Patient had 2 bowel movements while here in the emergency department but reports that this did not relieve her generalized abdominal discomfort. Abdominal exam she does have active bowel sounds. No focal areas of tenderness, rebound or guarding. She does have history of prior bowel obstructions that required surgical management with partial bowel resection in the past. Primary concern is for possible small bowel obstruction. Will proceed with labs, CT abdomen pelvis and reassess 03/23/18 01:10 CT scan of the abdomen pelvis does not demonstrate any evidence of a bowel obstruction or any other acute pathology. The patient has tolerated oral intake without any difficulty. Repeat abdominal exam remains benign. At this time will discharge with return precautions and follow-up recommendations. Verbal discharge instructions given a the bedside and opportunity for questions given. Medication warnings reviewed. Patient is in agreement with this plan and has verbalized understanding of return precautions and the need for primary care follow-up in the next 24-72 hours. - Vital Signs Vital signs: Temp Pulse Resp BP Pulse Ox 98.6 F 81 16 167/86 H 99 03/22/18 19:14 03/22/18 19:14 03/22/18 19:14 03/22/18 21:36 03/22/18 21:36 - Laboratory Result Diagrams: 03/22/18 20:28 03/22/18 20:28 Laboratory results interpreted by me: 03/22/18 03/22/18 03/22/18 20:28 20:28 20:28 MCH 26.9 L RDW 14.7 H Sodium 145.8 H Potassium 3.2 L BUN 32 H Creatinine 1.73 H Est GFR ( Amer) 35 L Est GFR (Non-Af Amer) 29 L Glucose 128 H Calcium 10.4 H AST 37 H Urine Blood SMALL H Ur Leukocyte Esterase TRACE H - Diagnostic Test Radiology reviewed: Reports reviewed Discharge - Discharge Clinical Impression: Generalized abdominal pain Nausea and vomiting Qualifiers: Vomiting type: unspecified Vomiting Intractability: non-intractable Qualified Code(s): R11.2 - Nausea with vomiting, unspecified Constipation Qualifiers: Constipation type: unspecified constipation type Qualified Code(s): K59.00 - Constipation, unspecified Condition: Good Disposition: HOME, SELF-CARE Additional Instructions: You have been seen in the Emergency Department (ED) for abdominal pain. Your evaluation did not identify a clear cause of your symptoms but was generally reassuring. Please follow up with your doctor as soon as possible regarding today's emergent visit and the symptoms that are bothering you. Return to the ED if your abdominal pain worsens or fails to improve, you develop bloody vomiting, bloody diarrhea, you are unable to tolerate fluids due to vomiting, fever greater than 101, or other symptoms that concern you. Referrals: Dara KITCHEN MD [ACTIVE STAFF] - Follow up as needed
[2018-03-22 21:06] LABS: ALANINE AMINOTRANSFERASE 28 U/L (9-52); ALBUMIN 4.4 g/dL (3.5-5.0); ALKALINE PHOSPHATASE 60 U/L (38-126); ANION GAP 15 (5-19); ASPARTATE AMINO TRANSFERASE 37 U/L (14-36); BILIRUBIN,DIRECT 0.3 mg/dL (0.0-0.4); BILIRUBIN,TOTAL 0.3 mg/dL (0.2-1.3); BLOOD UREA NITROGEN 32 mg/dL (7-20); CALCIUM 10.4 mg/dL (8.4-10.2); CARBON DIOXIDE 27 mmol/L (22-30); CHLORIDE 104 mmol/L (98-107); GLUCOSE 128 mg/dL (75-110); LIPASE 147.6 U/L (23-300); POTASSIUM 3.2 mmol/L (3.6-5.0); SODIUM 145.8 mmol/L (137-145); TOTAL PROTEIN 8.1 g/dL (6.3-8.2)
--- NOTE | 2018-03-23 00:10 | RADIOLOGY REPORT (SQ) ---
EXAM DESCRIPTION: CT ABDOMEN PELVIS WITH IV CONTRAST COMPLETED DATE/TME: 03/22/2018 00:00 CLINICAL HISTORY: 72 years, Female, eval sbo COMPARISON: 03/21/2016. TECHNIQUE: 406 Images stored on PACS. All CT scanners at this facility use dose modulation, iterative reconstruction, and/or weight based dosing when appropriate to reduce radiation dose to as low as reasonably achievable (ALARA). [facility]: Dose Right [facility]: CareDose [facility]: Dose Right [facility]: Teradose 4D [facility]: Smart Technologies LIMITATIONS: None. FINDINGS: Small hiatal hernia. Spleen and adrenal glands are unremarkable. Gallbladder appears unremarkable. Numerous renal cysts bilaterally the largest in the left kidney measuring 9 cm. The pancreas appears unremarkable. There is no evidence to suggest obstructive uropathy or hydronephrosis. Numerous vascular calcifications are present along the gonadal veins. Calcification in aorta and its branches. No evidence of aortic aneurysm or dissection. There is a ventral hernia containing nonobstructed loops of bowel. This appears similar to the prior exam. No free fluid in the pelvis. Diverticulosis without evidence of diverticulitis. IMPRESSION: Noted acute process Stable appearance of ventral hernia containing nonobstructed bowel Numerous bilateral renal cysts Diverticulosis without diverticulitis TECHNICAL DOCUMENTATION: Quality ID # 436: Final reports with documentation of one or more dose reduction techniques (e.g., Automated exposure control, adjustment of the mA and/or kV according to patient size, use of iterative reconstruction technique) 2010 [employer]- All Rights Reserved
[2018-03-23 01:31] VITALS: BP 162/93
== END 2018-03-23 01:31 | disposition home or self-care (01) ==
LOC: ER 19:07
DX: K59.00 Constipation, unspecified (principal); T47.3X6A Underdosing of saline and osmotic laxatives, initial encounter; Z91.128 Patient's intentional underdosing of medication regimen for other reason; Z91.14 Patient's other noncompliance with medication regimen; R10.84 Generalized abdominal pain; R11.2 Nausea with vomiting, unspecified; I10 Essential (primary) hypertension; E11.9 Type 2 diabetes mellitus without complications; Z90.49 Acquired absence of other specified parts of digestive tract
CPT/HCPCS: 99284; 96361; 96374; 36415; 83605; 83690; 85025; 80053; 81001; 74177; J2765; J7030

== ENCOUNTER 2018-07-09 07:53 | Day surgery (SDC) | payer MEDICARE ==
[~2018-07-09 07:53] MED LIST: KETOROLAC TROMETHAMINE 0.45% 4 DROP/0.4 ML DROPERETTE OD PRN; TETRACAINE HCL 0.5% OPH SOLN 0.6 ML DROPERETTE OD PRN
[2018-07-09] MEDS ORDERED: LIDOCAINE 1%/PHENYLEPHRINE 1.5% 1 ML VIAL ONE (07:56)
[2018-07-09] MEDS ORDERED: EPINEPHRINE INJ/PF 1 MG/1 ML AMPULE ONE (07:56)
[2018-07-09] MEDS ORDERED: CHONDR SU A NA/HYALUR INTRAOC KIT (SURGICARE) ONE (07:57)
[2018-07-09] MEDS ORDERED: MIDAZOLAM 2 MG/2 ML INJ ONE (08:03)
[2018-07-09] MEDS: TROPICAMIDE 1% OPH SOLN 3 ML OD PRN ×2 (08:35→08:55)
[2018-07-09] MEDS: BESIFLOXACIN HCL 0.6% OPH SUSP 5 ML BOTTLE OD PRN ×4 (08:35→09:41)
[2018-07-09] MEDS: CYCLOPENTOLATE 0.2%/PHENYLEPHRINE 1% OPH SOLN 2 ML OD PRN ×3 (08:35→08:55)
[2018-07-09] MEDS: TETRACAINE HCL 0.5% OPH SOLN 4 ML OD PRN ×4 (08:36→09:21)
--- NOTE | 2018-07-10 07:42 | [facility] OPERATIVE REPORT E ---
[facility] Operative Report NAME: FARIHA ROSS AGE: 72Y DATE OF SURGERY: 07/09/2018 ROOM: PREOPERATIVE DIAGNOSIS: CATARACT, RIGHT EYE. POSTOPERATIVE DIAGNOSIS: CATARACT, RIGHT EYE. OPERATION: Cataract extraction with insertion of an IOL of the right eye. SURGEON: DIPIKA AGGARWAL M.D. ANESTHESIA: Topical. PROCEDURE: After obtaining appropriate consent, the patient's right eye was prepped and draped in sterile fashion as well as the surgeon in a sterile manner and cataract surgery was started. First a paracentesis blade was used to make a side-port incision. Viscoelastic was used to inflate the anterior chamber. Next a 2.4 mm incision was made with a 2.4 mm blade, clear corneal temporally. A continuous capsulorrhexis was made using a cystotome and Utrata forceps. Following this hydrodissection was carried out to make the lens fully loose and mobile and it was rotated 90 degrees. Following this, a [id number] technique was used to phacoemulsify the lens with a CDE of 8.11. The remaining cortex was removed with irrigation/aspiration. Provisc was instilled into the capsular bag to inflate the bag. A SN60WF, 22.0 diopter lens was placed. The remaining viscoelastic material was removed with irrigation/aspiration. Following this, the incision was found to be watertight. Besivance was instilled into the eye and a protective shield was placed over the eye. The patient returned to the postoperative recovery in stable condition. DICTATING PHYSICIAN: DIPIKA AGGARWAL M.D. [id number] PHY#: [id number] ID: [id number] JOB#: [id number] ACCT: [id number] cc:DIPIKA AGGARWAL M.D. >
--- NOTE | 2018-07-10 07:43 | [facility] DISCHARGE SUMMARY E ---
[facility] Discharge Summary NAME: FARIHA ROSS AGE: 72Y ADMITTED: 07/09/2018 DISCHARGED: 07/09/2018 HISTORY: This is a 72-year-old female who underwent cataract extraction of the right eye. DIAGNOSIS: Cataract, right eye. HOSPITAL COURSE: She underwent surgery because she was having difficulty seeing road signs and words on the television. DISCHARGE INSTRUCTIONS: She should be on a regular diet. No bending at the waist. No heavy lifting. She should use Vigamox, Ketorolac, and Durezol at 3 p.m. and 8 p.m., and I will see her for a one day postoperative tomorrow. DICTATING PHYSICIAN: DIPIKA AGGARWAL M.D. [id number] PHY#: [id number] ID: [id number] JOB#: [id number] ACCT: [id number] cc:DIPIKA AGGARWAL M.D. >
== END 2018-07-09 10:39 | disposition home or self-care (01) ==
LOC: SC 07:53
PROVIDERS: ATTEND Internal Medicine
DX: H25.811 Combined forms of age-related cataract, right eye (principal); H40.1122 Primary open-angle glaucoma, left eye, moderate stage; I10 Essential (primary) hypertension; Z79.899 Other long term (current) drug therapy; Z96.1 Presence of intraocular lens; D64.9 Anemia, unspecified; I20.9 Angina pectoris, unspecified
CPT/HCPCS: 66984; V2632; J2250; J3490 ×2; A9270; J0171; J2370; 142

== ENCOUNTER → 2018-08-31 | Outpatient (CLI) | payer MEDICARE, OTHER ==
[2018-08-31 11:09] LABS: HEMATOCRIT 33.3 % (36.0-47.0); HEMOGLOBIN 11.4 g/dL (12.0-15.5); MEAN CORPUSCULAR HEMOGLOBIN 27.9 pg (27.0-33.4); MEAN CORPUSCULAR HGB CONC 34.4 g/dL (32.0-36.0); MEAN CORPUSCULAR VOLUME 81 fl (80-97); PLATELET COUNT 262 10^3/uL (150-450); RED BLOOD COUNT 4.11 10^6/uL (3.72-5.28); RED CELL DISTRIBUTION WIDTH 14.8 % (11.5-14.0); WHITE BLOOD COUNT 6.1 10^3/uL (4.0-10.5)
[2018-08-31 11:18] LABS: APPEARANCE,URINE CLEAR; BILIRUBIN,URINE NEGATIVE (NEGATIVE); COLOR,URINE YELLOW; GLUCOSE, URINE NEGATIVE (NEGATIVE); KETONES,URINE NEGATIVE (NEGATIVE); LEUKOCYTE ESTERASE,URINE LARGE (NEGATIVE); NITRITE,URINE NEGATIVE (NEGATIVE); PROTEIN,URINE NEGATIVE (NEGATIVE); URINE SPECIFIC GRAVITY 1.011; UROBILINOGEN,URINE NEGATIVE mg/dL (<2.0)
[2018-08-31 11:33] LABS: ANION GAP 10 (5-19); BLOOD UREA NITROGEN 29 mg/dL (7-20); CALCIUM 9.6 mg/dL (8.4-10.2); CARBON DIOXIDE 29 mmol/L (22-30); CHLORIDE 104 mmol/L (98-107); GLUCOSE 121 mg/dL (75-110); IRON(TIBC) 56.8 ug/dL (37-170); POTASSIUM 3.7 mmol/L (3.6-5.0); SODIUM 142.6 mmol/L (137-145)
== END ==
LOC: OD 10:25
PROVIDERS: ATTEND Internal Medicine Nephrology
DX: I12.9 Hypertensive chronic kidney disease with stage 1 through stage 4 chronic kidney disease, or unspecified chronic kidney disease (principal); N18.3 Chronic kidney disease, stage 3 (moderate); D64.9 Anemia, unspecified
CPT/HCPCS: 36415; 80048; 81001; 82728; 83540; 83550; 83735; 85027

== ENCOUNTER → 2018-09-18 | Outpatient (CLI) | payer MEDICARE, OTHER ==
[2018-09-18 11:39] LABS: ALANINE AMINOTRANSFERASE 22 U/L (9-52); ALBUMIN 4.3 g/dL (3.5-5.0); ALKALINE PHOSPHATASE 63 U/L (38-126); ANION GAP 9 (5-19); ASPARTATE AMINO TRANSFERASE 34 U/L (14-36); BILIRUBIN,DIRECT 0.1 mg/dL (0.0-0.4); BILIRUBIN,TOTAL 0.6 mg/dL (0.2-1.3); BLOOD UREA NITROGEN 30 mg/dL (7-20); CALCIUM 10.2 mg/dL (8.4-10.2); CARBON DIOXIDE 30 mmol/L (22-30); CHLORIDE 105 mmol/L (98-107); CHOLESTEROL 176.21 mg/dL (0-200); GLUCOSE 108 mg/dL (75-110); POTASSIUM 3.7 mmol/L (3.6-5.0); SODIUM 143.7 mmol/L (137-145); TOTAL PROTEIN 7.3 g/dL (6.3-8.2); TRIGLYCERIDES 78 mg/dL (<150)
[2018-09-18 11:50] LABS: DIRECT LDL 98 mg/dL (<100)
== END ==
LOC: OD 10:14
PROVIDERS: ATTEND Family Medicine
DX: Z13.220 Encounter for screening for lipoid disorders (principal); Z87.898 Personal history of other specified conditions
CPT/HCPCS: 36415; 80053; 80061; 83036; 84443

== ENCOUNTER → 2018-09-30 | Outpatient (CLI) | payer MEDICARE, OTHER ==
--- NOTE | 2018-10-05 15:16 | WOMENS IMAGING REPORT ---
EXAM DESCRIPTION: 3D SCREENING MAMMO BILAT COMPLETED DATE/TIME: 09/30/2018 11:26 am REASON FOR STUDY: Z12.31 ROUTINE 3D BILATERAL SCREENING Z12.31 ENCNTR SCREEN MAMMOGRAM FOR MALIGNAN T NEOPLASM OF CHUY COMPARISON: 09/11/2017 and 12/26/2015. TECHNIQUE: Standard craniocaudal and mediolateral oblique views of each breast recorded using digita l acquisition and breast tomosynthesis. LIMITATIONS: None. FINDINGS: No masses, calcifications or architectural distortion. No areas of suspicion. Read with the assistance of CAD. .[facility] - R2 Cenova Version 1.3 .[facility] - R2 Cenova Version 2.1 .[facility] - R2 Cenova Version 2.4 .[facility] [place] R2 Cenova Version 2.4 .[facility] - R2 Critical Care Physician Version 9.2 IMPRESSION: NORMAL MAMMOGRAM. BIRADS 1. BREAST DENSITY: a. The breasts are almost entirely fatty. BIRAD: 1 NEGATIVE RECOMMENDATION: ROUTINE SCREENING COMMENT: The patient has been notified of the results by letter per MQSA requirements. Additional no tification policies are in place for contacting patient with suspicious or incomplete findings. Quality ID #225: The [employer] recommends an annual screening mammogram for women aged 40 years or over. This facility utilizes a reminder system to ensure that all patients receive reminder letters, and/or direct phone calls for appointments. This includes reminders for routine scr eening mammograms, diagnostic mammograms, or other Breast Imaging Interventions when appropriate. Th is patient will be placed in the appropriate reminder system. The [employer] (ACR) has developed recommendations for screening MRI of the breast s in certain patient populations, to be used in conjunction with mammography. Breast MRI surveillanc e may be appropriate for women with more than 20% lifetime risk of developing breast cancer as deter mined by genetic testing, significant family history of the disease, or history of mantle radiation f or Hodgkins Disease. ACR Practice Guidelines 2008. DBT Technology DBT is a type of tomographic mammography. With conventional mammography, overlapping breast tissue ma y make lesions difficult to detect, even with good compression. DBT uses an x-ray tube that rotates a round the breast, taking images at different angles. These images are then combined to create thin sl ices of the breast that the radiologist can view as a 3D reconstruction. The [employer] unit can perform full-field digital mammograms (2D imaging); or DBT (3D imaging); or both, in a combination mode that quickly performs both the mammogram and the tomosynthesis scan while the breast is still compressed. PQRS 6045F: Fluoroscopic imaging is not utilized for breast tomosynthesis. TECHNICAL DOCUMENTATION: FINDING NUMBER: (1) ASSESSMENT: (1) JOB ID: [id number] [employer]- All Rights Reserved Reading location - IP/workstation name: [email or web address]
== END ==
LOC: WI 10:35
PROVIDERS: ATTEND Family Medicine
DX: Z12.31 Encounter for screening mammogram for malignant neoplasm of breast (principal)
CPT/HCPCS: 77063; 77067

== ENCOUNTER → 2018-10-12 | Outpatient (CLI) | payer MEDICARE, OTHER ==
[2018-10-12 14:09] LABS: ABSOLUTE EOSINOPHILS # (AUTO) 0.2 10^3/uL (0.0-0.6); ABSOLUTE LYMPHOCYTES (AUTO) 1.8 10^3/uL (0.5-4.7); ABSOLUTE MONOCYTES (AUTO) 0.6 10^3/uL (0.1-1.4); BASOPHILS % (AUTO) 0.3 % (0-2); HEMATOCRIT 33.1 % (36.0-47.0); HEMOGLOBIN 11.3 g/dL (12.0-15.5); MEAN CORPUSCULAR HEMOGLOBIN 27.4 pg (27.0-33.4); MEAN CORPUSCULAR HGB CONC 34.1 g/dL (32.0-36.0); MEAN CORPUSCULAR VOLUME 80 fl (80-97); PLATELET COUNT 239 10^3/uL (150-450); RED BLOOD COUNT 4.13 10^6/uL (3.72-5.28); RED CELL DISTRIBUTION WIDTH 14.6 % (11.5-14.0); SEGMENTED NEUTROPHILS % (AUTO) 53.7 % (42-78); TOTAL CELLS COUNTED % (AUTO) 100 %; WHITE BLOOD COUNT 5.5 10^3/uL (4.0-10.5)
[2018-10-12 14:11] LABS: INTERNATIONAL RATION (INR) 0.95; PROTHROMBIN TIME 13.2 SEC (11.4-15.4)
[2018-10-12 14:12] LABS: PARTIAL THROMBOPLASTIN TIME 30.1 SEC (23.5-35.8)
== END ==
LOC: OD 11:23
PROVIDERS: ATTEND Family Medicine
DX: R23.3 Spontaneous ecchymoses (principal); R73.09 Other abnormal glucose; R23.8 Other skin changes
CPT/HCPCS: 36415; 83036; 85025; 85610; 85730

== ENCOUNTER → 2019-02-19 | Outpatient (CLI) | payer MEDICARE, OTHER ==
[2019-02-19 11:08] LABS: APPEARANCE,URINE CLOUDY; BILIRUBIN,URINE NEGATIVE (NEGATIVE); COLOR,URINE YELLOW; GLUCOSE, URINE NEGATIVE (NEGATIVE); KETONES,URINE NEGATIVE (NEGATIVE); LEUKOCYTE ESTERASE,URINE LARGE (NEGATIVE); NITRITE,URINE NEGATIVE (NEGATIVE); PROTEIN,URINE NEGATIVE (NEGATIVE); URINE SPECIFIC GRAVITY 1.016; UROBILINOGEN,URINE NEGATIVE mg/dL (<2.0)
[2019-02-19 11:08] LABS: HEMATOCRIT 34.2 % (36.0-47.0); HEMOGLOBIN 11.4 g/dL (12.0-15.5); MEAN CORPUSCULAR HEMOGLOBIN 26.8 pg (27.0-33.4); MEAN CORPUSCULAR HGB CONC 33.5 g/dL (32.0-36.0); MEAN CORPUSCULAR VOLUME 80 fl (80-97); PLATELET COUNT 263 10^3/uL (150-450); RED BLOOD COUNT 4.26 10^6/uL (3.72-5.28); RED CELL DISTRIBUTION WIDTH 14.6 % (11.5-14.0); WHITE BLOOD COUNT 6.1 10^3/uL (4.0-10.5)
[2019-02-19 11:33] LABS: ANION GAP 10 (5-19); BLOOD UREA NITROGEN 41 mg/dL (7-20); CALCIUM 10.9 mg/dL (8.4-10.2); CARBON DIOXIDE 30 mmol/L (22-30); CHLORIDE 101 mmol/L (98-107); GLUCOSE 119 mg/dL (75-110)
[2019-02-19 11:38] LABS: POTASSIUM 3.1 mmol/L (3.6-5.0)
[2019-02-19 11:43] LABS: ANION GAP 10 (5-19); BLOOD UREA NITROGEN 41 mg/dL (7-20); CALCIUM 10.9 mg/dL (8.4-10.2); CARBON DIOXIDE 30 mmol/L (22-30); CHLORIDE 101 mmol/L (98-107); GLUCOSE 119 mg/dL (75-110); POTASSIUM 3.1 mmol/L (3.6-5.0)
== END ==
LOC: OD 10:18
PROVIDERS: ATTEND Internal Medicine Nephrology
DX: I12.9 Hypertensive chronic kidney disease with stage 1 through stage 4 chronic kidney disease, or unspecified chronic kidney disease (principal); N18.3 Chronic kidney disease, stage 3 (moderate); D64.9 Anemia, unspecified; E11.9 Type 2 diabetes mellitus without complications
CPT/HCPCS: 36415; 80048; 81001; 83036; 83735; 85027

== ENCOUNTER → 2019-02-22 | Outpatient (CLI) | payer MEDICARE, OTHER | LOC: OD 10:19 | PROVIDERS: ATTEND Physician Assistant Medical | DX: E87.6 Hypokalemia (principal) | CPT/HCPCS: 36415; 84132 ==

== ENCOUNTER → 2019-06-07 | Outpatient (CLI) | payer MEDICARE, OTHER ==
--- NOTE | 2019-06-07 11:11 | RADIOLOGY REPORT (SQ) ---
EXAM DESCRIPTION: CHEST PA/LATERAL COMPLETED DATE/TIME: 06/07/2019 10:52 am REASON FOR STUDY: PRE-OP COMPARISON: EXAM PARAMETERS: NUMBER OF VIEWS: two views TECHNIQUE: Digital Frontal and Lateral radiographic views of the chest acquired. RADIATION DOSE: NA LIMITATIONS: none FINDINGS: LUNGS AND PLEURA: No opacities, masses or pneumothorax. No pleural effusion. MEDIASTINUM AND HILAR STRUCTURES: No masses or contour abnormalities. HEART AND VASCULAR STRUCTURES: Heart normal size. No evidence for failure. Aortic atherosclerosis. BONES: No acute findings. HARDWARE: None in the chest. OTHER: No other significant finding. IMPRESSION: NO SIGNIFICANT RADIOGRAPHIC FINDING IN THE CHEST. TECHNICAL DOCUMENTATION: JOB ID: [id number] [employer]- All Rights Reserved Reading location - IP/workstation name: [email or web address]
[2019-06-07 11:36] LABS: ABSOLUTE EOSINOPHILS # (AUTO) 0.1 10^3/uL (0.0-0.6); ABSOLUTE LYMPHOCYTES (AUTO) 2.3 10^3/uL (0.5-4.7); ABSOLUTE MONOCYTES (AUTO) 0.7 10^3/uL (0.1-1.4); ABSOLUTE NEUT (AUTO) 3.9 10^3/uL (1.7-8.2); BASOPHILS % (AUTO) 0.7 % (0-2); EOSINOPHILS % (AUTO) 2.1 % (0-6); HEMATOCRIT 34.2 % (36.0-47.0); HEMOGLOBIN 11.6 g/dL (12.0-15.5); MEAN CORPUSCULAR HEMOGLOBIN 27.5 pg (27.0-33.4); MEAN CORPUSCULAR VOLUME 81 fl (80-97); MONOCYTES % (AUTO) 9.4 % (3-13); PLATELET COUNT 274 10^3/uL (150-450); RED BLOOD COUNT 4.23 10^6/uL (3.72-5.28); RED CELL DISTRIBUTION WIDTH 14.9 % (11.5-14.0); SEGMENTED NEUTROPHILS % (AUTO) 55.8 % (42-78); TOTAL CELLS COUNTED % (AUTO) 100 %
[2019-06-07 11:50] LABS: AMORPHOUS SEDIMENT,URINE TRACE /HPF; APPEARANCE,URINE SLIGHTLY-CLOUDY; BILIRUBIN,URINE NEGATIVE (NEGATIVE); COLOR,URINE YELLOW; GLUCOSE, URINE NEGATIVE (NEGATIVE); KETONES,URINE NEGATIVE (NEGATIVE); LEUKOCYTE ESTERASE,URINE LARGE (NEGATIVE); NITRITE,URINE NEGATIVE (NEGATIVE); PROTEIN,URINE NEGATIVE (NEGATIVE); URINE SPECIFIC GRAVITY 1.016; UROBILINOGEN,URINE NEGATIVE mg/dL (<2.0)
[2019-06-07 12:02] LABS: ANION GAP 11 (5-19); BLOOD UREA NITROGEN 32 mg/dL (7-20); CALCIUM 10.3 mg/dL (8.4-10.2); CARBON DIOXIDE 27 mmol/L (22-30); CHLORIDE 105 mmol/L (98-107); GLUCOSE 81 mg/dL (75-110); POTASSIUM 3.3 mmol/L (3.6-5.0)
--- NOTE | 2019-06-07 15:05 | EKG REPORT ---
SEVERITY:- ABNORMAL ECG - SINUS RHYTHM VENTRICULAR PREMATURE COMPLEX INTERPOLATED VENTRICULAR PREMATURE COMPLEX FIRST DEGREE AV BLOCK LVH WITH SECONDARY REPOLARIZATION ABNORMALITY INFERIOR INFARCT, OLD : Confirmed by: Mara Mead MD 07-Jun-2019 15:05:22
== END ==
LOC: OD 10:26
PROVIDERS: ATTEND Orthopaedic Surgery
DX: Z01.810 Encounter for preprocedural cardiovascular examination (principal); Z01.811 Encounter for preprocedural respiratory examination; Z01.812 Encounter for preprocedural laboratory examination; M17.11 Unilateral primary osteoarthritis, right knee; E11.9 Type 2 diabetes mellitus without complications
CPT/HCPCS: 36415; 71046; 80048; 81001; 83036; 85025; 93005; 93010

== ENCOUNTER 2019-06-28 10:00 | Inpatient (IN) | payer MEDICARE, OTHER ==
[2019-07-06] MEDS ORDERED: IBUPROFEN 800 MG in NORMAL SALINE 250 ML IV PRN (10:22)
[2019-07-07] MEDS ORDERED: PANTOPRAZOLE SODIUM 20 MG TABLET.DR PO PRN (05:00)
[2019-07-07] MEDS ORDERED: CEFAZOLIN INJ 1 GM VIAL IV PRN (05:00)
[2019-07-07] MEDS ORDERED: LACTATED RINGERS 1000 ML IV PRN (05:00)
[2019-07-07] MEDS ORDERED: LIDOCAINE 0.5% INJ-PF (5 MG/ML) 50 ML SDV SUBCUT PRN (05:00)
[2019-07-07] MEDS ORDERED: BUPIVACAINE INJ/PF LIPOSOME/PF 266 MG/20 ML SDV INJ PRN (05:00)
[2019-07-07] MEDS ORDERED: OXYCODONE HCL SR 10 MG TABLET PO PRN (05:00)
[2019-07-07] MEDS ORDERED: VANCOMYCIN HCL 1,000 MG in DEXTROSE 5%-WATER 250 ML IV PRN (05:00)
[2019-07-07] MEDS ORDERED: PANTOPRAZOLE SODIUM 20 MG TABLET.DR PO ONE (07:07)
[2019-07-07] MEDS ORDERED: OXYCODONE HCL SR 10 MG TABLET PO ONE (07:07)
[2019-07-07] MEDS ORDERED: MIDAZOLAM 2 MG/2 ML INJ ONE (09:08)
[2019-07-07] MEDS ORDERED: TRANEXAMIC ACID INJ/PF 1,000 MG/10 ML SDV ONE ×2 (09:08→11:05)
[2019-07-07] MEDS ORDERED: PROPOFOL INJ 200 MG/20 ML VIAL IV ONE (09:08)
[2019-07-07] MEDS ORDERED: FENTANYL CITRATE INJ/PF 100 MCG/2 ML AMPUL ONE (09:08)
[2019-07-07] MEDS ORDERED: EPHEDRINE SULFATE INJ 50 MG/1 ML AMPULE ONE (09:12)
[2019-07-07] MEDS ORDERED: CEFAZOLIN INJ 1 GM VIAL ONE (09:26)
[2019-07-07] MEDS ORDERED: MAG HYDROX/AL HYDROX/SIMETH SUSP 30 ML UDCUP PO PRN (10:43)
[2019-07-07] MEDS ORDERED: DIPHENHYDRAMINE HCL 50 MG/ML VIAL IV PRN ×2 (10:43→12:30)
[2019-07-07] MEDS ORDERED: OXYCODONE HCL IR 5 MG TABLET PO PRN ×2 (10:43→12:30)
[2019-07-07] MEDS ORDERED: ZOLPIDEM TARTRATE 5 MG TABLET PO PRN (10:43)
[2019-07-07] MEDS ORDERED: ONDANSETRON HCL INJ/PF 4 MG/2 ML SDV IV PRN (10:43)
[2019-07-07] MEDS ORDERED: ACETAMINOPHEN 325 MG TABLET PO PRN (10:43)
--- NOTE | 2019-07-07 10:43 | Operative Report ---
Operative Report DATE OF SURGERY: 07/07/19 PREOPERATIVE DIAGNOSIS: Right knee arthritis OPERATION: Right knee arthroplasty SURGEON: ANTIONE WILLIS ANESTHESIA: Spinal TISSUE REMOVED OR ALTERED: Bone to pathology ESTIMATED BLOOD LOSS: 75 PROCEDURE: Implants used: Femur: [place] triathlon size 5 CR femur Tibia: 6 cemented tibia Tibial liner: 9 mm cS insert Patella: 38 mm oval patella Procedure with the patient supine on the operating table the right the limb is prepped and draped in a sterile fashion. The limb was elevated for exsanguination and the tourniquet inflated to 280 torr. A standard midline median parapatellar approach the knee is taken. Access is gained to the femoral canal through the intercondylar notch. Intramedullary alignment instrumentation used to resect 10 mm of distal femur in 5 of valgus. Sizing guide indicated a size 5 femur. Appropriate cutting jig is then used to fashion anterior posterior and chamfer cuts. A trial reduction femurs performed and this is judged to be adequate. Attention was next turned to the tibia. Using an extra medullary alignment system two millimeters was resected off the lateral tibial plateau. This is sized to a size 6 tibia. A trial reduction was now performed with a 5 femur and a 6 tibia using a 9 millimeters spacer. It is full extension and central patellofemoral tracking. The articular surface the patella was next resected using an oscillating saw. All trial implants were removed. Polymethylmethacrylate is mixed and used to cement the above implants in place. On adequate curing the cement excess cement was removed the tourniquet was deflated hemostasis obtained the wound is then closed in layers using interrupted Vicryl followed by sharonda. A sterile compressive dressing was applied and the patient returned to recovery room in satisfactory condition.
[2019-07-07] MEDS ORDERED: TRANEXAMIC ACID INJ/PF 1,000 MG/10 ML SDV IV ONE (11:30)
--- NOTE | 2019-07-07 11:30 | RADIOLOGY REPORT (SQ) ---
EXAM DESCRIPTION: KNEE RIGHT 2 VIEWS COMPLETED DATE/TIME: 07/07/2019 11:20 am REASON FOR STUDY: Post OP -Long Cassette in PACU M17.11 UNILATERAL PRIMARY OSTEOARTHRITIS, RIGHT KN EE COMPARISON: None. NUMBER OF VIEWS: Two view(s). TECHNIQUE: Digital radiographic images of the right knee post-procedure. LIMITATIONS: None. FINDINGS: BONES: No worrisome or unexpected findings post-procedure. DEVICE: Total knee arthroplasty SOFT TISSUES: No worrisome findings. Expected postoperative soft tissue changes. IMPRESSION: SATISFACTORY POSTOPERATIVE RIGHT KNEE. TECHNICAL DOCUMENTATION: JOB ID: [id number] [employer]- All Rights Reserved Reading location - IP/workstation name: [email or web address]
[2019-07-07] MEDS ORDERED: ONDANSETRON HCL INJ/PF 4 MG/2 ML SDV ONE (11:51)
[2019-07-07] MEDS: ONDANSETRON 4 MG TAB.RAPDIS PO PRN (11:52)
[2019-07-07] MEDS ORDERED: INFLUENZA QUAD (6MOS+) 2019-20 VAC 0.5 ML SYR IM ONE (12:27)
[2019-07-07] MEDS ORDERED: MORPHINE SULFATE 10 MG/ML INJ IV PRN ×2 (12:30)
[2019-07-07] MEDS ORDERED: ONDANSETRON 4 MG TAB.RAPDIS PO PRN (12:30)
[2019-07-07] MEDS ORDERED: PROMETHAZINE HCL INJ 25 MG/1 ML VIAL IV PRN (14:38)
[2019-07-07] MEDS: CLONIDINE HCL 0.2 MG TABLET PO SCH ×2 (16:17→21:56)
[2019-07-07] MEDS: RINGERS SOLUTION,LACTATED 1,000 ML IV PRN (16:55)
[2019-07-07] MEDS: SENNOSIDES/DOCUSATE 8.6-50 MG 1 EACH TABLET PO SCH (17:34)
[2019-07-07] MEDS: IBUPROFEN 800 MG in NORMAL SALINE 250 ML IV SCH (17:34)
[2019-07-07] MEDS: PREGABALIN 75 MG CAPSULE PO SCH (17:34)
[2019-07-07] MEDS ORDERED: PREGABALIN 75 MG CAPSULE PO SCH (18:00)
[2019-07-07] MEDS: OXYCODONE HCL SR 10 MG TABLET PO SCH (21:56)
[2019-07-07] MEDS ORDERED: OXYCODONE HCL SR 10 MG TABLET PO SCH (22:00)
[2019-07-07] MEDS ORDERED: VANCOMYCIN HCL 1,000 MG in DEXTROSE 5%-WATER 250 ML IV ONE (22:45)
[2019-07-08] MEDS: IBUPROFEN 800 MG in NORMAL SALINE 250 ML IV SCH ×3 (01:20→18:26)
[2019-07-08 05:48] LABS: HEMATOCRIT 32.6 % (36.0-47.0); MEAN CORPUSCULAR HEMOGLOBIN 27.2 pg (27.0-33.4); MEAN CORPUSCULAR HGB CONC 33.8 g/dL (32.0-36.0); MEAN CORPUSCULAR VOLUME 81 fl (80-97); PLATELET COUNT 237 10^3/uL (150-450); RED BLOOD COUNT 4.05 10^6/uL (3.72-5.28); RED CELL DISTRIBUTION WIDTH 14.4 % (11.5-14.0); WHITE BLOOD COUNT 8.1 10^3/uL (4.0-10.5)
[2019-07-08] MEDS: PANTOPRAZOLE SODIUM 40 MG TABLET.DR PO SCH (06:17)
[2019-07-08] MEDS: CLONIDINE HCL 0.2 MG TABLET PO SCH ×3 (06:17→23:03)
[2019-07-08 06:19] LABS: ANION GAP 12 (5-19); BLOOD UREA NITROGEN 23 mg/dL (7-20); CALCIUM 9.2 mg/dL (8.4-10.2); CARBON DIOXIDE 30 mmol/L (22-30); CHLORIDE 96 mmol/L (98-107); GLUCOSE 123 mg/dL (75-110); POTASSIUM 3.1 mmol/L (3.6-5.0)
--- NOTE | 2019-07-08 06:58 | PDOC PROGRESS REPORT ---
Subjective Progress Note for:: 07/08/19 Reason For Visit: M17.11 UNILATERAL PRIMARY OSTEOARTHRITIS, RIGHT KN 73-year-old black female now postop day 1 status post right knee arthroplasty. Patient has had an uncomplicated postoperative course. Limited progress with physical therapy yesterday because of sedation. Physical Exam Vital Signs: Temp Pulse Resp BP Pulse Ox 36.6 C 67 17 156/63 H 99 07/07/19 20:46 07/07/19 20:46 07/07/19 20:46 07/07/19 20:46 07/07/19 20:46 Intake & Output 07/06/19 07/07/19 07/08/19 06:59 06:59 06:59 Intake Total 6869 Output Total 3289 Balance 3580 Weight 96.6 kg General appearance: PRESENT: no acute distress, well-developed, well-nourished Head exam: PRESENT: normocephalic Respiratory exam: PRESENT: unlabored Cardiovascular exam: PRESENT: RRR Pulses: PRESENT: +1 pedal pulses bilateral GI/Abdominal exam: PRESENT: soft Rectal exam: PRESENT: deferred Extremities exam: PRESENT: other - Right lower extremity compressive dressing clean dry and intact. Distal neurovascular examination is intact. Neurological exam: PRESENT: alert, awake, oriented to person, oriented to place, oriented to time, oriented to situation. ABSENT: motor sensory deficit Psychiatric exam: PRESENT: appropriate affect, normal mood. ABSENT: homicidal ideation, suicidal ideation Skin exam: PRESENT: dry, intact, warm. ABSENT: cyanosis, rash Results Laboratory Results: 07/08/19 04:35 07/08/19 04:35 07/07/19 07/08/19 07/08/19 07:34 04:35 04:35 WBC 8.1 RBC 4.05 Hgb 11.0 L Hct 32.6 L MCV 81 MCH 27.2 MCHC 33.8 RDW 14.4 H Plt Count 237 Sodium 138.4 Potassium 3.2 L 3.1 L Chloride 96 L Carbon Dioxide 30 Anion Gap 12 BUN 23 H Creatinine 1.46 H Est GFR ( Amer) 42 L Glucose 123 H Calcium 9.2 Impressions: Knee X-Ray 07/07/19 10:45 IMPRESSION: SATISFACTORY POSTOPERATIVE RIGHT KNEE. Status: Imported from PACS Assessment & Plan - Diagnosis (1) Arthritis of right knee Is this a current diagnosis for this admission?: Yes Plan: Mobilize with physical therapy today as tolerated basis. Anticipate discharge home tomorrow with home health services and DME. - Time Time Spent with patient: 15-24 minutes Anticipated discharge: Home with Homehealth Within: within 24 hours
[2019-07-08] MEDS: ONDANSETRON 4 MG TAB.RAPDIS PO PRN (09:43)
[2019-07-08] MEDS ORDERED: (PENDING PHARMACY ID) (Magnesium [Magnesium] 250 MG) PO SCH (10:00)
[2019-07-08] MEDS ORDERED: PANTOPRAZOLE SODIUM 40 MG TABLET.DR PO SCH (10:00)
[2019-07-08] MEDS: PREGABALIN 75 MG CAPSULE PO SCH ×2 (10:00→18:26)
[2019-07-08] MEDS ORDERED: POTASSIUM 99 MG PO SCH (10:00)
[2019-07-08] MEDS: OXYCODONE HCL SR 10 MG TABLET PO SCH ×2 (10:00→23:04)
[2019-07-08] MEDS ORDERED: (PENDING PHARMACY ID) (Losartan/Hydrochlorothiazide [Hyzaar 100-12.5 Tablet] 1 EACH) PO SCH (10:00)
[2019-07-08] MEDS: MAGNESIUM OXIDE 400 MG TABLET PO SCH (14:19)
[2019-07-08] MEDS: SENNOSIDES/DOCUSATE 8.6-50 MG 1 EACH TABLET PO SCH ×2 (14:20→18:26)
[2019-07-08] MEDS: LOSARTAN POTASSIUM 50 MG TABLET PO SCH (14:20)
[2019-07-08] MEDS: PRENATAL VITAMIN W DHA CAPSULE PO SCH (14:20)
[2019-07-08] MEDS: ASPIRIN 81 MG TABLET, ENT COATED PO SCH (14:20)
[2019-07-08] MEDS: LACTULOSE SYRUP 20 GM/30 ML UDCUP PO SCH (14:21)
[2019-07-08] MEDS: HYDROCHLOROTHIAZIDE 12.5 MG TABLET PO SCH (14:24)
[2019-07-08] MEDS: AMLODIPINE BESYLATE 10 MG TABLET PO SCH (14:32)
[2019-07-09] MEDS: IBUPROFEN 800 MG in NORMAL SALINE 250 ML IV SCH ×2 (01:43→10:11)
[2019-07-09] MEDS: CLONIDINE HCL 0.2 MG TABLET PO SCH (05:44)
[2019-07-09] MEDS: PANTOPRAZOLE SODIUM 40 MG TABLET.DR PO SCH (05:44)
[2019-07-09] MEDS: RINGERS SOLUTION,LACTATED 1,000 ML IV PRN (05:45)
[2019-07-09 06:06] LABS: HEMATOCRIT 28.3 % (36.0-47.0); HEMOGLOBIN 9.7 g/dL (12.0-15.5); MEAN CORPUSCULAR HEMOGLOBIN 27.8 pg (27.0-33.4); MEAN CORPUSCULAR HGB CONC 34.3 g/dL (32.0-36.0); MEAN CORPUSCULAR VOLUME 81 fl (80-97); PLATELET COUNT 200 10^3/uL (150-450); WHITE BLOOD COUNT 8.3 10^3/uL (4.0-10.5)
--- NOTE | 2019-07-09 06:20 | PDOC DISCHARGE SUMMARY ---
Impression - Admit/DC Date/PCP Admission Date/Primary Care Provider: 07/07/19 06:58 MICHAEL CUI MD Discharge Date: 07/09/19 - Discharge Diagnosis (1) Arthritis of right knee Is this a current diagnosis for this admission?: Yes - Additional Information Resuscitation Status: Full Code Discharge Activity: Balance Activity w/Rest, No tub bath Referrals: ANTIONE WILLIS MD [ACTIVE STAFF] - 07/22/19 9:15 am Home Medications: Amlodipine Besylate 10 mg PO DAILY 08/08/17 Aspirin [Aspirin EC] 81 mg PO DAILY 08/08/17 Losartan/Hydrochlorothiazide [Hyzaar 100-12.5 Tablet] 1 each PO DAILY 08/08/17 Clonidine HCl [Catapres 0.2 mg Tablet] 0.2 mg PO Q8 07/03/18 Magnesium 250 mg PO DAILY 07/01/19 Potassium 99 mg PO DAILY 07/01/19 Lactulose [Constulose 10 gm/15 mL Oral Solution] 10 gm PO DAILY 07/07/19 History of Present Illiness History of Present Illness: FARIHA ROSS is a 73 year old female 73-year-old black female with progressive right knee pain and functional disability second osteoarthritis. Patient is admitted for elective right knee arthroplasty. Hospital Course Hospital Course: Patient is admitted through the operating room she undergoes uncomplicated right knee arthroplasty. She was returned to the floor in satisfactory condition. Residual effects of anesthesia limit the amount of cooperation the patient has with physical therapy on the day of surgery. She is seen by physical therapy the day after surgery makes excellent progress ambulating and weightbearing as tolerated basis. Physical Exam Vital Signs: Temp Pulse Resp BP Pulse Ox 37.3 C 66 16 140/62 H 92 07/09/19 00:00 07/09/19 00:00 07/09/19 00:00 07/09/19 00:00 07/09/19 00:00 Intake & Output 07/07/19 07/08/19 07/09/19 06:59 06:59 06:59 Intake Total 6869 958 Output Total 3289 Balance 3580 958 Weight 96.6 kg 96.6 kg General appearance: PRESENT: no acute distress Head exam: PRESENT: normocephalic Respiratory exam: PRESENT: unlabored Cardiovascular exam: PRESENT: RRR Pulses: PRESENT: +1 pedal pulses bilateral GI/Abdominal exam: PRESENT: soft Rectal exam: PRESENT: deferred Musculoskeletal exam: PRESENT: other - Compressive dressing is removed from the right lower extremity on postop day 2. Underlying OpSite dressing is clean dry and intact. There is minimal pedal edema. Distal neurovascular examination is intact. Neurological exam: PRESENT: alert, awake, oriented to person, oriented to place, oriented to time, oriented to situation. ABSENT: motor sensory deficit Psychiatric exam: PRESENT: appropriate affect, normal mood. ABSENT: homicidal ideation, suicidal ideation Skin exam: PRESENT: dry, intact, warm. ABSENT: cyanosis, rash Results Laboratory Results: WBC 8.3 10^3/uL (4.0-10.5) 07/09/19 05:41 RBC 3.50 10^6/uL (3.72-5.28) L 07/09/19 05:41 Hgb 9.7 g/dL (12.0-15.5) L 07/09/19 05:41 Hct 28.3 % (36.0-47.0) L 07/09/19 05:41 MCV 81 fl (80-97) 07/09/19 05:41 MCH 27.8 pg (27.0-33.4) 07/09/19 05:41 MCHC 34.3 g/dL (32.0-36.0) 07/09/19 05:41 RDW 15.0 % (11.5-14.0) H 07/09/19 05:41 Plt Count 200 10^3/uL (150-450) 07/09/19 05:41 Sodium 138.4 mmol/L (137-145) 07/08/19 04:35 Potassium 3.1 mmol/L (3.6-5.0) L 07/08/19 04:35 Chloride 96 mmol/L (98-107) L 07/08/19 04:35 Carbon Dioxide 30 mmol/L (22-30) 07/08/19 04:35 Anion Gap 12 (5-19) 07/08/19 04:35 BUN 23 mg/dL (7-20) H 07/08/19 04:35 Creatinine 1.46 mg/dL (0.52-1.25) H 07/08/19 04:35 Est GFR ( Amer) 42 (>60) L 07/08/19 04:35 Est GFR (MDRD) Non-Af 35 (>60) L 07/08/19 04:35 Glucose 123 mg/dL (75-110) H 07/08/19 04:35 Calcium 9.2 mg/dL (8.4-10.2) 07/08/19 04:35 Impressions: Knee X-Ray 07/07/19 10:45 IMPRESSION: SATISFACTORY POSTOPERATIVE RIGHT KNEE. Plan Plan of Treatment: Discharge home with home health services and DME. Follow-up at Dr. Willis and [facility] for surgery in 2 weeks for staple removal. Time Spent: Less than 30 Minutes Stroke Is this a Stroke Patient?: No Stroke Pt being discharged on Anti-thrombolytic therapy?: Yes Acute Heart Failure - Is this a Heart Failure Patient?: No
[2019-07-09 08:37] VITALS: BP 122/51
[2019-07-09] MEDS: HYDROCHLOROTHIAZIDE 12.5 MG TABLET PO SCH (10:08)
[2019-07-09] MEDS: MAGNESIUM OXIDE 400 MG TABLET PO SCH (10:08)
[2019-07-09] MEDS: LACTULOSE SYRUP 20 GM/30 ML UDCUP PO SCH (10:09)
[2019-07-09] MEDS: PRENATAL VITAMIN W DHA CAPSULE PO SCH (10:09)
[2019-07-09] MEDS: ASPIRIN 81 MG TABLET, ENT COATED PO SCH (10:09)
[2019-07-09] MEDS: LOSARTAN POTASSIUM 50 MG TABLET PO SCH (10:09)
[2019-07-09] MEDS: SENNOSIDES/DOCUSATE 8.6-50 MG 1 EACH TABLET PO SCH (10:09)
[2019-07-09] MEDS: PREGABALIN 75 MG CAPSULE PO SCH (10:09)
[2019-07-09] MEDS: AMLODIPINE BESYLATE 10 MG TABLET PO SCH (10:09)
[2019-07-09] MEDS: OXYCODONE HCL SR 10 MG TABLET PO SCH (10:11)
== END 2019-07-09 12:40 | disposition home health service (06) | DRG 470 ==
LOC: INOR 07-07 06:58 → 4W 07-07 12:10
PROVIDERS: ADMIT Orthopaedic Surgery; ATTEND Orthopaedic Surgery
PROC: 3E02340 Introduction of Influenza Vaccine into Muscle, Percutaneous Approach (ICD-10-PCS; 2019-07-07)
PROC: 0SRC0J9 Replacement of Right Knee Joint with Synthetic Substitute, Cemented, Open Approach (ICD-10-PCS; principal; 2019-07-07 09:00)
DX: M17.11 Unilateral primary osteoarthritis, right knee (principal); Z23 Encounter for immunization; F41.9 Anxiety disorder, unspecified; F32.9 Major depressive disorder, single episode, unspecified; I25.10 Atherosclerotic heart disease of native coronary artery without angina pectoris; I25.2 Old myocardial infarction; N18.3 Chronic kidney disease, stage 3 (moderate); I12.9 Hypertensive chronic kidney disease with stage 1 through stage 4 chronic kidney disease, or unspecified chronic kidney disease; E11.22 Type 2 diabetes mellitus with diabetic chronic kidney disease; Z79.899 Other long term (current) drug therapy; Z79.82 Long term (current) use of aspirin; Z90.710 Acquired absence of both cervix and uterus; K59.00 Constipation, unspecified; Z90.49 Acquired absence of other specified parts of digestive tract
CPT/HCPCS: 01402; 36415; 80048; 83036; 84132; 85027; 88305; 88311; 90686; 94799; C1713; C1776; J0690; J1741; J2250; J2270; J2405; J2550; J2704; J3010; J3370; J3490; J7050; J7060; J7120; S0119

== ENCOUNTER → 2019-07-05 | Outpatient (CLI) | payer MEDICARE, OTHER ==
[2019-07-05 11:15] LABS: ANION GAP 10 (5-19); BLOOD UREA NITROGEN 31 mg/dL (7-20); CALCIUM 9.8 mg/dL (8.4-10.2); CARBON DIOXIDE 29 mmol/L (22-30); CHLORIDE 102 mmol/L (98-107); GLUCOSE 171 mg/dL (75-110); POTASSIUM 3.2 mmol/L (3.6-5.0)
== END ==
LOC: OD 10:18
PROVIDERS: ATTEND Family Medicine
DX: E87.6 Hypokalemia (principal); E11.22 Type 2 diabetes mellitus with diabetic chronic kidney disease; N18.3 Chronic kidney disease, stage 3 (moderate)
CPT/HCPCS: 36415; 80048; 83036

== ENCOUNTER → 2020-02-14 | Outpatient (CLI) | payer MEDICARE, OTHER ==
[2020-02-14 12:39] LABS: ALBUMIN 4.3 g/dL (3.5-5.0); ALKALINE PHOSPHATASE 57 U/L (38-126); ANION GAP 9 (5-19); ASPARTATE AMINO TRANSFERASE 31 U/L (14-36); BILIRUBIN,TOTAL 0.5 mg/dL (0.2-1.3); BLOOD UREA NITROGEN 37 mg/dL (7-20); CALCIUM 9.8 mg/dL (8.4-10.2); CARBON DIOXIDE 27 mmol/L (22-30); CHLORIDE 103 mmol/L (98-107); CHOLESTEROL 171.31 mg/dL (0-200); GLUCOSE 93 mg/dL (75-110); POTASSIUM 3.3 mmol/L (3.6-5.0); TOTAL PROTEIN 7.6 g/dL (6.3-8.2); TRIGLYCERIDES 167 mg/dL (<150)
[2020-02-14 13:35] LABS: VLDL CHOLESTEROL 33.4 mg/dL (10-31)
[2020-02-14 13:59] LABS: DIRECT LDL 82 mg/dL (<100)
== END ==
LOC: OD 11:27
PROVIDERS: ATTEND Family Medicine
DX: E11.9 Type 2 diabetes mellitus without complications (principal)
CPT/HCPCS: 36415; 80053; 80061; 83036

== ENCOUNTER → 2020-06-30 | Outpatient (CLI) | payer MEDICARE, OTHER ==
[2020-06-30 12:33] LABS: ALBUMIN 4.2 g/dL (3.5-5.0); ALKALINE PHOSPHATASE 87 U/L (38-126); ANION GAP 9 (5-19); ASPARTATE AMINO TRANSFERASE 34 U/L (14-36); BILIRUBIN,TOTAL 0.5 mg/dL (0.2-1.3); BLOOD UREA NITROGEN 36 mg/dL (7-20); CALCIUM 9.9 mg/dL (8.4-10.2); CARBON DIOXIDE 29 mmol/L (22-30); CHLORIDE 101 mmol/L (98-107); CHOLESTEROL 126.59 mg/dL (0-200); GLUCOSE 143 mg/dL (75-110); TOTAL PROTEIN 7.5 g/dL (6.3-8.2); TRIGLYCERIDES 119 mg/dL (<150)
[2020-06-30 12:48] LABS: DIRECT LDL 45 mg/dL (<100)
== END ==
LOC: OD 11:38
PROVIDERS: ATTEND Family Medicine
DX: E78.2 Mixed hyperlipidemia (principal); E11.9 Type 2 diabetes mellitus without complications
CPT/HCPCS: 36415; 80053; 80061; 83036

== ENCOUNTER → 2020-07-26 | Outpatient (CLI) | payer MEDICARE, OTHER ==
--- NOTE | 2020-07-26 12:08 | RADIOLOGY REPORT (SQ) ---
EXAM DESCRIPTION: U/S ABDOMEN LIMITED W/O DOP IMAGES COMPLETED DATE/TIME: 07/26/2020 11:48 am REASON FOR STUDY: (R10.9)UNSPECIFIED ABDOMINAL PAIN K43.9 VENTRAL HERNIA WITHOUT OBSTRUCTION OR MARIANA GRENE R10.9 UNSPECIFIED ABDOMINAL PAIN COMPARISON: CT dated 03/22/2018 TECHNIQUE: Dynamic and static grayscale images acquired of the localized site of clinical concern an d recorded on PACS. Additional selected color Doppler and spectral images recorded. SITE OF CONCERN: Anterior abdominal wall LIMITATIONS: None. FINDINGS: SKIN AND SUBCUTANEOUS TISSUES: Focal hernia containing what appears to be omental fat and peristalsing bowel. DEEP SOFT TISSUES/MUSCLES: No masses. No fluid collections. No edema. VASCULAR: No increased or decreased vascularity. No occlusions. OTHER: No other significant finding. IMPRESSION: Ventral hernia just superior to the umbilicus. TECHNICAL DOCUMENTATION: JOB ID: [id number] [employer]- All Rights Reserved Reading location - IP/workstation name: [email or web address]
== END ==
LOC: RAD 11:06
PROVIDERS: ATTEND Family Medicine
DX: K43.9 Ventral hernia without obstruction or gangrene (principal); R10.9 Unspecified abdominal pain
CPT/HCPCS: 76705